=== PATIENT | female | born 1935 | race Caucasian/White ===

== ENCOUNTER 2017-03-26 10:44 | Inpatient (IN) ==
--- NOTE | 2017-03-26 11:36 | Anesthesia Evaluation PreOp ---
Date of Encounter: 03/26/17 Time of Encounter: 11:33 - Past History Planned Operation: R-rosalina colectomy Cardiac History: Other (AAA 3.1 x 2.6 cm stable on ultrasound 01/2016. 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: Denies Any Significant HX Other Medical History: Renal (Stage 3 CKD), Thyroid (Hx thyroid nodules s/p thryroidectromy), Other (Hx of bladder Ca/low grade urothelial carcinoma,) Anesthesia History: No Prior Anesthetic Complications, Past Anesthesia (Partial Hyster 1975, R-lobectomy/L-stereotactic tx of lung Ca 2000, R-thyroidectomy, tubal ligation, Lap Soraya 2013, R-Inguinal lymph node bx, B-IHR w/Mesh 2014, Bladder mass surgery 10/2015) Alcohol Use: none Drug use: none Medications and Allergies Aspirin 81 mg PO DAILY 10/29/14 [History] Cholecalciferol (Vitamin D3) [Vitamin D3] 5,000 tab PO DAILY 10/29/14 [History] Cyanocobalamin (Vitamin B-12) [Vitamin B12] 2,500 mcg PO DAILY 10/29/14 [History ] TraMADol [Ultram] 50 mg PO Q6HR PRN 11/05/14 [History] Darbepoetin [Aranesp] 200 mcg SQ Q2W 01/10/15 [History] Multivitamin [Multi-Day Vitamins] 1 each PO DAILY 03/11/15 [History] Folic Acid 0.8 mg PO DAILY 01/20/17 [History] Umeclidinium Brm/Vilanterol Tr [Anoro Ellipta 62.5-25 Mcg INH] 1 puff IH DAILY 03/26/17 [History] 3 Allergy/AdvReac Type Severity Reaction Status Date / Time Penicillins [PCN] Allergy Hives Verified 03/26/17 11:17 Sulfa (Sulfonamide Allergy Itching Verified 03/26/17 11:17 Antibiotics) terbinafine Allergy Itching Verified 03/26/17 11:17 venom-honey bee Allergy Swelling Verified 03/26/17 11:17 [bee venom (honey bee)] morphine AdvReac Migraine Verified 03/26/17 11:17 metal Allergy Itching Uncoded 03/26/17 11:17 - Meds/Allergy Pre-op Review Medications Reviewed: Yes Allergies Reviewed: Yes Beta Blockers on Current Med List: No Anesthesia Results - Labs Laboratory Tests 03/03/17 03/25/17 11:49 12:16 WBC 5.3 Hgb 10.5 L Hct 33.1 L Plt Count 377 Sodium 140 Potassium 4.3 Chloride 102 Carbon Dioxide 30 H BUN 31 H Creatinine 1.76 H Est GFR (Non-Af Amer) 28 L - Imaging EKG: image reviewed (78 bpm SR) Chest x-ray: pending Anesthesia Exam O2 Sat Height 1.73 m Height 1.73 m Weight 53.524 kg Weight 53.524 kg O2 Sat by Pulse Oximetry 98 Vital Signs Temp Pulse Resp BP Pulse Ox 98.3 F 84 18 159/81 98 03/26/17 11:28 03/26/17 11:28 03/26/17 11:28 03/26/17 11:28 03/26/17 11:28 Height: 5'8" Weight: 118# bmi = 18 NPO (# of Hours): mNOC - HEENT Pupil (Motor): Pupils equal, EOMI Mallampati: II Teeth: Edentulous Oral Opening: Greater than 3 - LICENSED PSYCHOLOGIST DIRECTOR LOC: Oriented LICENSED PSYCHOLOGIST DIRECTOR Motor: Normal RUE, Normal LUE, Normal RLE, Normal LLE, Normal Face LICENSED PSYCHOLOGIST DIRECTOR Sensory: Normal: RUE, LUE, RLE, LLE, Face - Cardiac Rhythm: Regular Murmur: None - Pulmonary Breath Sounds: bilateral Clear Respiratory Effort: Symmetrical Anesthesia Assess/Plan ASA Score: 3 (Lung Ca x 2 primaries, CKD, COPD, Bladder CA) Modified [place] Scale for Level of Consciousness: Cooperative, oriented, and tranquil Anesthetic Plan: General Monitoring Plan: Standard Monitors Recovery Plan: PACU Anes Supervising Prov Stmt: Pt seen/evalutaed, R&B Discussed, questions answered and consent obtained. Alejandra Wayne MD
[2017-03-26] MEDS ORDERED: Lidocaine -MPF 1% 2 ML VIAL ID ONE (11:52)
[2017-03-26] MEDS ORDERED: Albuterol 2.5 MG/3 ML NEBULIZER IH ONE (12:00)
[2017-03-26] MEDS ORDERED: Albuterol 2.5 MG/3 ML NEBULIZER ONE (12:01)
[2017-03-26] MEDS: Ringers Solution, Lactated 1,000 ML IVC SCH (12:25)
[2017-03-26] MEDS ORDERED: *HR* FentaNYL (PF) 100 MCG/2 ML VIAL ONE (12:51)
[2017-03-26] MEDS ORDERED: *HR* Rocuronium Bromide 50 MG/5 ML VIAL ONE (12:51)
[2017-03-26] MEDS ORDERED: Lidocaine -MPF 2% 2 ML VIAL ONE (12:51)
[2017-03-26] MEDS ORDERED: *HR* Propofol 200 MG/20 ML VIAL IVP ONE (12:51)
--- NOTE | 2017-03-26 13:17 | History & Physical Report ---
Date of Encounter: 03/26/17 Time of Encounter: 13:16 24 Hour HP Update - Instructions Instructions: If the History and Physical is less than 30 days old and was completed prior to A.M. admission and or procedure and has NOT been updated on calendar day of procedure please complete this update prior to performing procedure. - Update Patient reports changes in Medical Condition: No Changes in examination, assessment, or condition: No Changes in Medication: No Preop tests/diagnostics Reviewed: Yes Surgery Remains Indicated: Yes Consent for Planned Operative Procedure(s) Verified: Yes - Pre-Operative Checklist Preoperative Checklist Indicated: Yes Prophylactic Antibiotic Ordered: Yes Home Medications Include Beta Carlotta: No Beta Carlotta Taken Today (Day of Surgery): No Beta Carlotta Taken Yesterday (Day Prior to Surgery): No Is VTE Prophylaxis Indicated?: Yes - Attending Attestation patient seen and examined. no changes in health since last evaluation; okay to proceed with surgery
[2017-03-26] MEDS ORDERED: Naloxone 0.4 MG/ML INJ IVP PRN (14:07)
[2017-03-26] MEDS ORDERED: MetroNIDAZOLE 500 MG/100 ML 500 MG/100 ML BAG IVPB ONE ×2 (14:08→14:10)
[2017-03-26] MEDS ORDERED: Levofloxacin 500 MG/100 ML 500 MG/100 ML BAG IVPB ONE (14:11)
[2017-03-26] MEDS ORDERED: Acetaminophen 325 MG TABLET PO PRN (14:12)
[2017-03-26] MEDS ORDERED: D5% in 0.45% NACL 1,000 ML IVC SCH (14:15)
[2017-03-26] MEDS ORDERED: EPHEDrine 50 MG/ML VIAL ONE (14:45)
[2017-03-26] MEDS ORDERED: Albuterol 2.5 MG/3 ML NEBULIZER IH PRN (16:03)
[2017-03-26] MEDS ORDERED: Ondansetron 4 MG/2 ML VIAL IVP PRN (16:03)
[2017-03-26] MEDS ORDERED: *HR* HYDROmorphone 2 MG/ML SYRINGE ONE (16:34)
[2017-03-26] MEDS ORDERED: Neostigmine Methylsulfate 3 MG/3 ML SYRINGE ONE (16:44)
[2017-03-26] MEDS: *HR* HYDROmorphone (PF) 1 MG/ML SYRINGE IVP PRN ×4 (18:20→18:50)
[2017-03-26] MEDS ORDERED: Acetaminophen IV 1,000 MG/100 ML INFUS..BTL ONE (18:49)
--- NOTE | 2017-03-26 18:58 | Anesthesia Evaluation Post Op ---
Date of Encounter: 03/26/17 Time of Encounter: 18:57 - Vital Signs Vital Signs: Vital Signs/O2 Sat/Glucose, Most Current Temp Pulse Resp BP Pulse Ox 03/26/17 18:48 80 16 143/58 98 03/26/17 18:38 79 16 152/61 98 03/26/17 18:28 97.9 F 86 18 154/61 99 03/26/17 18:18 96 20 163/68 96 03/26/17 18:08 91 18 161/67 100 03/26/17 17:58 98.9 F 87 16 151/67 100 - Lungs Lungs: Clear Ascult./Percussion - Airway Airway: Non-obstructed - Cardiovascular Regular Rate - Mental Status Mental Status: Alert & Oriented, Answers Appropriately - Pain Pain Scale: 2 Pain Scale used: Georges-Cole (Faces) - Nausea Vomiting Nausea Vomiting: Not Present - Hydration Hydration: Tolerates oral liquids - Discharge PostOp Status: Transfer Patient to floor Anes Supervising Prov Stmt: Pt seen/evaluated, VSS and pt has met criteria for discharge to floor. - MD Rosana
--- NOTE | 2017-03-26 19:13 | Operative Note ---
Date of procedure: 03/26/17 Pre-op diagnosis: unresectable colonic polyp Post-op diagnosis: same Procedure: laparoscopic right hemicolectomy Complications: none Anesthesia: GETA Local Anesthetics: 0.5% Sensorcaine HCL SubQ (cc) Surgeon: Josh Copeland Was there an plastic surgery assistant present: Yes Range Scientist: Madhuri Do Estimated blood loss (cc): 10 Specimen: right colon Condition: stable Disposition: PACU Procedure in Detail: The patient was brought into the operating room suite. The patient was placed in the supine position. Mechanical DVT prophylaxis was initiated. The patient underwent smooth induction of general endotracheal anesthesia. The patient was prepped and draped in the usual fashion. Preoperative antibiotics were given. A timeout was held identifying the correct patient, pathology, and procedure. Everyone was in agreement and we began a procedure. Incision to Dissection I started by creating a 10mm incision supraumbilically and, via open johan technique, did enter into the abdomen and inserted the port for the laparoscopic camera. I then created 3 five millimeter incision, one suprapubically, one in left abdomen one handbreadth from the umbilicus, and one on the right one handbreadth from the umbilicus. I started my dissection laterally. I retracted the cecum medially and, using electrocautery began to dissect along the white line of toldt. I then continued along the hepatic flexure. She had adhesions from a prior cholecystectomy and these were also taken down to allow mobilization of the colon. I then mobilized the transverse colon by incising the gastrocolic ligament. I was able to enter into the lesser sac to ensure an adequate dissection/mobilization. I was able At this point, I was able to move the right colon across the midline and the transverse colon down the umbilicus. At this point i deemed that, despite not mobilizing medially, my mobilization was more than adequate. Exteriorization to Anastamosis I then extended the incision around the umbilicus, inserted the frank wound protector and exteriorized the bowel. I had to insert the hand port and reinsufflate because the appendix was adhere to the pelvis by an adhesive band. This was lysed and I ended the insufflation and re-exteriorized the bowel. I stapled the transverse colon medial to the middle colic artery distally and across the terminal ileum proximally using the 75mm endo JUSTIN stapler. I used the impact ligasure across the mesentery. Of note, I did take the Right branch of the middle colic artery. I then passed off the specimen. I then used the eddy scissors to cut across the staple line at the corner and, using the same caliber stapler as before, I inserted one arm into the proximal and distal end and fired the stapler, creating my side to side anastasmosis. I did this twice. I then used a TA stapler to staple the open end and used a 3-0 vicryl suture to serve as my crotch stitch. Closure I then used 1-0 PDS suture in a figure of 8 fashion to close the fascia. I used a 3-0 vicryl to reapproximate the deep dermal layer. I then closed the midline incision with a 4-0 monocyryl in a subcuticular fashion. I closed the remaining 5mm incisions with 4-0 monocryl in an interrupted fashion. All incisions were sealed with dermabond. The patient tolerated the procedure well and was escorted to PACU in stable condition.
--- NOTE | 2017-03-26 19:20 | Event Note ---
Date of Encounter: 03/26/17 Time of Encounter: 19:15 Patient did well intraoperatively. Post operatively she is stable and in no acute distress. Plan for over the weekend 03/26 - CLD; saline lock IV when PO intake is adequate - tramadol, flexeril, tylenol; can consider toradol if extra pain control needed. Wish to limit narcotics if possible. If she needs it then it is okay. - Activity as tolerated; encourage ambulation as tolerated - home meds restarted 03/27 - advance as tolerated to soft diet - cont pain regimen - activity as tolerated 03/28 okay for discharge if she is progressing as expected Should she not follow this expected hospital course, simply provide acceptable level of care.
[2017-03-26] MEDS: Gabapentin 300 MG CAPSULE PO SCH ×2 (21:37)
[2017-03-26] MEDS: traMADol 50 MG TABLET PO PRN (22:02)
[2017-03-27] MEDS: traMADol 50 MG TABLET PO PRN ×3 (04:03→18:32)
[2017-03-27] MEDS: Ringers Solution, Lactated 1,000 ML IVC SCH (04:04)
[2017-03-27 05:56] LABS: Basophils % 0.3 %; Hematocrit 28.1 % (35.3-44.9); Hemoglobin 8.7 g/dL (11.5-15.4); Immature Granulocytes % 0.4 % (0-4); Lymphocytes # 0.9 K/mcL (0.6-4.6); Lymphocytes % 8.9 %; Mean Corpuscular Hemoglobin 33.5 pg (28.0-33.3); Mean Corpuscular Volume 108.1 fL (83.0-100.0); Mean Platelet Volume 10.1 fL (9.4-12.4); Monocytes # 0.6 K/mcL (0.0-1.3); Monocytes % 5.5 %; Nucleated Red Blood Cells 0.2 /100 WBC (0); Platelet Count 287 K/mcL (140-400); Red Cell Distribution Width 17.9 % (11.5-14.5); Segmented Neutrophils % 84.9 %
[2017-03-27 06:27] LABS: Calcium 8.4 mg/dL (8.6-10.3); Magnesium 1.8 mg/dL (1.6-2.6); Phosphorous 5.1 mg/dL (2.7-4.5); Potassium 4.9 mEq/L (3.5-5.1)
[2017-03-27] MEDS ORDERED: Naloxone 0.4 MG/ML INJ IVP PRN (07:36)
[2017-03-27] MEDS ORDERED: Ondansetron 4 MG/2 ML VIAL IVP PRN (07:36)
[2017-03-27] MEDS ORDERED: Acetaminophen 325 MG TABLET PO PRN (07:36)
[2017-03-27] MEDS ORDERED: Albuterol 2.5 MG/3 ML NEBULIZER IH PRN (07:36)
--- NOTE | 2017-03-27 09:24 | General Surgery Progress Note ---
<Yara Arnold - Last Filed: 03/27/17 13:29> Date of Encounter: 03/27/17 Time of Encounter: 06:45 - Assessment and Plan (1) Colonic polyp Current Visit: Yes Status: Acute s/p day 1 laparoscopic right hemicolectomy Patient is stable, afebrile. WBC WNL She has not had a bowel movement or passed gas. Patient reports that she still has abdominal pain. Added dilaudid 0.5mg q1Hr PRN to pain control management. She has ambulated to the bedside commode. Continue ambulation as tolerated. Will continue to to advance diet only as tolerated. Qualifiers: Qualified Code(s): K63.5 - Polyp of colon Subjective Patient reports: no new complaints, still having pain, voiding w/o difficulty, no flatus, no bowel movement, afebrile Narrative: The patient reports that she abdominal pain still. According to her nurse she had a couple bites of jello last night and then became nauseas. She has not had a bowel movement or passed gas. Objective Vital Signs - Last 8 Hours Temp Pulse Resp BP Pulse Ox 03/27/17 06:50 98.4 F 77 16 149/58 99 03/27/17 04:17 98.1 F 79 15 152/69 100 Intake and Output 03/26/17 03/27/17 03/27/17 23:59 07:59 15:59 Intake Total 100 / 100 1000 / 1000 Output Total 460 / 460 100 / 100 Balance -360 / -360 900 / 900 Intake: IV Fluids 100 / 100 1000 / 1000 Ofirmev 1,000 mg/100 ml 1,000 100 / 100 mg In 100 ml As .ROUTE .STK-MED ONE Rx#:[id number] Lactated Ringers 1,000 ML @ 75 1000 / 1000 mls/hr IVC .[id number] [facility] Rx#: [id number] Oral 0 / 0 Output: Urine 450 / 450 100 / 100 Estimated Blood Loss Other: Weight 53.297 kg Patient Weight 03/27/17 23:59 Weight 53.297 kg - General physical appearance well developed, well nourished, no distress - ENT normal pinna, normal nares - Respiratory normal expansion, normal respiratory effort, clear to auscultation - Cardiovascular Cardiovascular exam: Present: RRR - Abdomen Abdomen: Present: bowel sounds present, soft, distended, tender. Absent: guarding - Incision Incision: Present: clean and dry. Absent: draining, red - Neurologic CN 2-12 grossly intact, normal coordination - Psychiatric oriented to time, oriented to person, oriented to place - Labs 03/27/17 05:33 03/27/17 05:33 Diabetes panel 03/27/17 Range/Units 05:33 Sodium 140 (136-145) mEq/L Potassium 4.9 (3.5-5.1) mEq/L Chloride 108 H (98-107) mEq/L Carbon Dioxide 27 (23-29) mEq/L BUN 35 H (8-23) mg/dL Creatinine 1.51 H (0.60-1.20) mg/dL Glucose 126 H (70-105) mg/dL Calcium 8.4 L (8.6-10.3) mg/dL Calcium panel 03/27/17 Range/Units 05:33 Calcium 8.4 L (8.6-10.3) mg/dL Phosphorus 5.1 H (2.7-4.5) mg/dL Pituitary panel 03/27/17 Range/Units 05:33 Sodium 140 (136-145) mEq/L Potassium 4.9 (3.5-5.1) mEq/L Chloride 108 H (98-107) mEq/L Carbon Dioxide 27 (23-29) mEq/L BUN 35 H (8-23) mg/dL Creatinine 1.51 H (0.60-1.20) mg/dL Glucose 126 H (70-105) mg/dL Calcium 8.4 L (8.6-10.3) mg/dL Adrenal panel 03/27/17 Range/Units 05:33 Sodium 140 (136-145) mEq/L Potassium 4.9 (3.5-5.1) mEq/L Chloride 108 H (98-107) mEq/L Carbon Dioxide 27 (23-29) mEq/L BUN 35 H (8-23) mg/dL Creatinine 1.51 H (0.60-1.20) mg/dL Glucose 126 H (70-105) mg/dL Calcium 8.4 L (8.6-10.3) mg/dL - VTE Documentation of Mechanical Device: Graduated compression elastic hosiery Consult Discharge Plan - Plan Referrals: Lester White MD [Primary Care Provider] - <Deshaun Lima - Last Filed: 03/28/17 10:06> Date of Encounter: 03/27/17 Objective Vital Signs - Last 8 Hours Temp Pulse Resp BP Pulse Ox 03/28/17 07:46 98.1 F 101 14 185/77 98 03/28/17 04:40 98.1 F 82 14 163/78 97 Intake and Output 03/27/17 03/28/17 03/28/17 23:59 07:59 15:59 Intake Total 1113 / 1113 640 / 640 Output Total 900 / 900 800 / 800 Balance 213 / 213 -160 / -160 Intake: IV Fluids 873 / 873 D5% And 0.45% Nacl 1000 Ml Bag 873 / 873 1,000 ML @ 83 mls/hr IVC . Q12H3M [facility] Rx#:[id number] Oral 240 / 240 640 / 640 Output: Urine 900 / 900 800 / 800 Other: Meal Dinner Weight 52.89 kg Patient Weight 03/28/17 23:59 Weight 52.89 kg - Labs 03/27/17 05:33 03/27/17 05:33 - Attending Attestation I examined this patient and my medical decision-making was reviewed with the Resident Physician. I agree with the documented findings, disposition and treatment plan as described except to the extent set forth below. The patient is seen and evaluated on morning rounds with rest. She does not have any bowel sounds. The abdomen is slightly distended. Her pain control is fair. We will slowly move up on her diet. Excellent condition for postoperative day 1 Deshaun Lima MD FACS
[2017-03-27] MEDS: Gabapentin 300 MG CAPSULE PO SCH ×3 (09:54→20:09)
[2017-03-27] MEDS: Aspirin 81 MG TAB.CHEW PO SCH (10:00)
[2017-03-27] MEDS: D5% in 0.45% NACL 1,000 ML IVC SCH ×2 (10:02→20:25)
[2017-03-27] MEDS: Folic Acid 1 MG TABLET PO SCH (10:06)
[2017-03-27] MEDS: Multivit/Ca/Min/Fe/FA 1 TAB TABLET PO SCH (10:06)
[2017-03-27] MEDS: *HR* Morphine 2 MG/ML SYRINGE IVP SCH ×4 (10:06→20:09)
[2017-03-27] MEDS: Cholecalciferol (D-3) 1,000 UNIT TABLET PO SCH (10:07)
[2017-03-27] MEDS: Cyanocobalamin (B-12) 1,000 MCG TABLET PO SCH (10:07)
[2017-03-27] MEDS ORDERED: *HR* Enoxaparin 40 MG/0.4 ML SYRINGE SQ SCH ×2 (14:11)
[2017-03-27] MEDS: *HR* HYDROmorphone (PF) 1 MG/ML SYRINGE IVP PRN (20:10)
[2017-03-28] MEDS: *HR* Morphine 2 MG/ML SYRINGE IVP SCH ×7 (01:35→23:45)
[2017-03-28] MEDS: traMADol 50 MG TABLET PO PRN ×2 (04:21→10:35)
[2017-03-28] MEDS: *HR* Enoxaparin 30 MG/0.3 ML SYRINGE SQ SCH (06:36)
[2017-03-28] MEDS ORDERED: 0.9 % Sodium Chloride 1,000 ML IV SCH (09:00)
[2017-03-28] MEDS ORDERED: 0.9 % Sodium Chloride 1,000 ML ONE (10:27)
[2017-03-28] MEDS: Gabapentin 300 MG CAPSULE PO SCH ×3 (10:35→21:12)
[2017-03-28] MEDS: Folic Acid 1 MG TABLET PO SCH (10:36)
[2017-03-28] MEDS: Cyanocobalamin (B-12) 1,000 MCG TABLET PO SCH (10:36)
[2017-03-28] MEDS: Multivit/Ca/Min/Fe/FA 1 TAB TABLET PO SCH (10:36)
[2017-03-28] MEDS: Cholecalciferol (D-3) 1,000 UNIT TABLET PO SCH (10:36)
[2017-03-28] MEDS: Aspirin 81 MG TAB.CHEW PO SCH (10:36)
--- NOTE | 2017-03-28 13:31 | General Surgery Progress Note ---
<Yara Arnold - Last Filed: 03/28/17 13:27> Date of Encounter: 03/28/17 Time of Encounter: 05:45 - Assessment and Plan (1) Colonic polyp Current Visit: Yes Status: Acute s/p day 2 laparoscopic right hemicolectomy Patient is stable, afebrile. WBC WNL She has not had a bowel movement or passed gas yet. Patient reports that she still has abdominal pain. She ambulates to the bathroom bowel sounds present, tender abdomen, no guarding continue pain management regimen Continue ambulation as tolerated. advance diet to soft food Qualifiers: Qualified Code(s): K63.5 - Polyp of colon (2) Hypertension Current Visit: Yes Status: Acute BP 185/77 she is not on home BP meds. May be due to IVF. stop IVF hydralazine once continue to monitor Qualifiers: Hypertension type: other secondary hypertension Qualified Code(s): I15.8 - Other secondary hypertension Subjective Patient reports: pain is less, tolerating liquids well, no flatus, no bowel movement Narrative: Patient complains of a sore throat and would lozenges. Objective Vital Signs - Last 8 Hours Temp Pulse Resp BP Pulse Ox 03/28/17 11:16 98.8 F 92 16 179/78 94 03/28/17 07:46 98.1 F 101 14 185/77 98 Intake and Output 03/27/17 03/28/17 03/28/17 23:59 07:59 15:59 Intake Total 1113 / 1113 640 / 640 500 / 500 Output Total 900 / 900 800 / 800 0 / 0 Balance 213 / 213 -160 / -160 500 / 500 Intake: IV Fluids 873 / 873 D5% And 0.45% Nacl 1000 Ml Bag 873 / 873 1,000 ML @ 83 mls/hr IVC . Q12H3M [facility] Rx#:[id number] Oral 240 / 240 640 / 640 500 / 500 Output: Urine 900 / 900 800 / 800 0 / 0 Other: Meal Dinner Weight 52.89 kg Patient Weight 03/28/17 23:59 Weight 52.89 kg - General physical appearance well developed, well nourished, no distress - Eyes normal ocular movement - ENT normal nares - Respiratory normal expansion, normal respiratory effort, clear to auscultation - Cardiovascular Cardiovascular exam: Present: RRR - Abdomen Abdomen: Present: bowel sounds present, soft, tender - Incision Incision: Present: clean and dry, intact - Integumentary no abnormal pigmentation - Neurologic normal coordination - Psychiatric oriented to time, oriented to person, oriented to place - Labs 03/27/17 05:33 03/27/17 05:33 - VTE Documentation of Mechanical Device: Intermittent pneumatic compression device Consult Discharge Plan - Plan Referrals: Lester White MD [Primary Care Provider] - <Deshaun Lima - Last Filed: 03/28/17 15:01> Date of Encounter: 03/28/17 Objective Vital Signs - Last 8 Hours Temp Pulse Resp BP Pulse Ox 03/28/17 11:16 98.8 F 92 16 179/78 94 03/28/17 07:46 98.1 F 101 14 185/77 98 Intake and Output 03/27/17 03/28/17 03/28/17 23:59 07:59 15:59 Intake Total 1113 / 1113 640 / 640 500 / 500 Output Total 900 / 900 800 / 800 0 / 0 Balance 213 / 213 -160 / -160 500 / 500 Intake: IV Fluids 873 / 873 D5% And 0.45% Nacl 1000 Ml Bag 873 / 873 1,000 ML @ 83 mls/hr IVC . Q12H3M [facility] Rx#:[id number] Oral 240 / 240 640 / 640 500 / 500 Output: Urine 900 / 900 800 / 800 0 / 0 Other: Meal Dinner Weight 52.89 kg Patient Weight 03/28/17 23:59 Weight 52.89 kg - Labs 03/27/17 05:33 03/27/17 05:33 - Attending Attestation I examined this patient and my medical decision-making was reviewed with the Resident Physician. I agree with the documented findings, disposition and treatment plan as described except to the extent set forth below. The patient is seen and evaluated with resident morning rounds. She has excellent pain control. She is not tolerating her diet very well like to try to advance to full liquid diet think this is reasonable. She has good bowel sounds. Mild distention. She is doing well after laparoscopic right hemicolectomy. Likely discharge Deshaun Lima MD FACS
[2017-03-29] MEDS: *HR* Morphine 2 MG/ML SYRINGE IVP SCH ×3 (05:54→15:06)
[2017-03-29] MEDS: *HR* Enoxaparin 30 MG/0.3 ML SYRINGE SQ SCH (06:45)
--- NOTE | 2017-03-29 09:26 | Electrocardiograph Report ---
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
[2017-03-29] MEDS: Folic Acid 1 MG TABLET PO SCH (09:32)
[2017-03-29] MEDS: Gabapentin 300 MG CAPSULE PO SCH ×3 (09:32→21:46)
[2017-03-29] MEDS: traMADol 50 MG TABLET PO PRN ×2 (09:32→15:09)
[2017-03-29] MEDS: Multivit/Ca/Min/Fe/FA 1 TAB TABLET PO SCH (09:33)
[2017-03-29] MEDS: Cholecalciferol (D-3) 1,000 UNIT TABLET PO SCH (09:33)
[2017-03-29] MEDS: Cyanocobalamin (B-12) 1,000 MCG TABLET PO SCH (09:33)
[2017-03-29] MEDS: Aspirin 81 MG TAB.CHEW PO SCH (09:33)
--- NOTE | 2017-03-29 09:39 | General Surgery Progress Note ---
Date of Encounter: 03/29/17 Time of Encounter: 09:36 - Assessment and Plan (1) S/P right hemicolectomy Current Visit: Yes Status: Acute 81F POD#3 s/p lap r rosalina; pain controlled; tolerating diet; ambulating; distended on exam; while in all other regards she looks good, I am slightly concerned at the amount of distension that she is having; encouraged ambulation today; if she has flatus or bowel movement OR if she continues to feel and look better by this evening, then I'd be okay with her going home today; at present the patient is hesitant about going home - diet as tolerated - activity as tolerated; ambulate multiple times today - cont to encourage PO intake, torsten liquids - cont with non narcotics; d/c morphine - will reassess in PM Subjective Patient reports: no new complaints, feels better, still having pain, pain is less, tolerating liquids well, no flatus, no bowel movement, afebrile Objective Vital Signs - Last 8 Hours Temp Pulse Resp BP Pulse Ox 03/29/17 04:26 98.1 F 84 16 162/73 96 Intake and Output 03/28/17 03/29/17 03/29/17 23:59 07:59 15:59 Intake Total 1120 / 1120 120 / 120 240 / 240 Output Total 200 / 200 200 / 200 Balance 920 / 920 -80 / -80 240 / 240 Intake: IV Fluids 1000 / 1000 Oral 120 / 120 120 / 120 240 / 240 Output: Urine 200 / 200 200 / 200 Other: Meal Dinner Breakfast Percent of Meal Consumed 5% 85% # Voids 3 Weight 53.2 kg Patient Weight 03/29/17 23:59 Weight 53.2 kg - General physical appearance well developed, no distress - ENT normocephalic - Respiratory normal expansion, normal respiratory effort - Cardiovascular Cardiovascular exam: Present: RRR - Abdomen Abdomen: Present: soft, tympanic, distended, tender (along midline incision; improved) - Incision Incision: Present: clean and dry, intact - Neurologic CN 2-12 grossly intact - Psychiatric oriented to time, oriented to person, oriented to place - Labs 03/27/17 05:33 03/27/17 05:33 - VTE Documentation of Mechanical Device: Intermittent pneumatic compression device Consult Discharge Plan - Plan Referrals: Lester White MD [Primary Care Provider] -
[2017-03-30] MEDS: traMADol 50 MG TABLET PO PRN ×2 (03:50→09:42)
--- NOTE | 2017-03-30 08:21 | General Surgery Progress Note ---
Date of Encounter: 03/30/17 Time of Encounter: 08:18 - Assessment and Plan (1) S/P right hemicolectomy Current Visit: Yes Status: Acute 81F POD#4 s/p lap r rosalina; pain controlled; tolerating diet; ambulating; distended on exam; (+)flatus; okay for discharge today, but patient is anxious about leaving - cont diet as tolerated - activity/ambulate - cont pain control - will reassess for discharge in the afternoon Subjective Patient reports: no new complaints, feels better, pain is less, tolerating liquids well, tolerating a regular diet, no flatus, no bowel movement, afebrile Objective Vital Signs - Last 8 Hours Temp Pulse Resp BP Pulse Ox 03/30/17 07:34 98.1 F 86 18 156/71 95 03/30/17 04:11 98.4 F 81 14 127/72 94 03/30/17 01:31 97.2 F L 78 14 130/81 97 Intake and Output 03/29/17 03/30/17 03/30/17 23:59 07:59 15:59 Intake Total 0 / 0 370 / 370 Output Total 700 / 700 450 / 450 Balance -700 / -700 -80 / -80 Intake: Oral 0 / 0 370 / 370 Output: Urine 700 / 700 450 / 450 Other: Weight 52.98 kg Patient Weight 03/30/17 23:59 Weight 52.98 kg - General physical appearance well developed, well nourished - ENT normocephalic - Neck Neck exam: no lymphadectomy - Respiratory normal expansion, normal respiratory effort - Cardiovascular Cardiovascular exam: Present: RRR - Abdomen Abdomen: Present: soft, tympanic, distended (non rigid; same distension as compared to yesterday), tender (appropriatley tender) - Incision Incision: Present: clean and dry, intact - Neurologic CN 2-12 grossly intact - Psychiatric oriented to time, oriented to person, oriented to place - Labs 03/27/17 05:33 03/27/17 05:33 - VTE Documentation of Mechanical Device: Intermittent pneumatic compression device Consult Discharge Plan - Plan Referrals: Lester White MD [Primary Care Provider] -
[2017-03-30] MEDS: Multivit/Ca/Min/Fe/FA 1 TAB TABLET PO SCH (08:30)
[2017-03-30] MEDS: Folic Acid 1 MG TABLET PO SCH (08:30)
[2017-03-30] MEDS: Cyanocobalamin (B-12) 1,000 MCG TABLET PO SCH (08:30)
[2017-03-30] MEDS: Gabapentin 300 MG CAPSULE PO SCH ×3 (08:30→19:31)
[2017-03-30] MEDS: *HR* Enoxaparin 30 MG/0.3 ML SYRINGE SQ SCH (08:33)
[2017-03-30] MEDS: Aspirin 81 MG TAB.CHEW PO SCH (08:33)
[2017-03-30] MEDS: Cholecalciferol (D-3) 1,000 UNIT TABLET PO SCH (08:33)
[2017-03-30] MEDS ORDERED: D5% in 0.45% NACL w KCl 20 MEQ/1,000 ML MLS IVC SCH (16:30)
[2017-03-30] MEDS ORDERED: Acetaminophen IV 1,000 MG/100 ML INFUS..BTL IVPB ONE (16:33)
[2017-03-30 16:47] LABS: Basophils % 0.5 %; Eosinophils # 0.1 K/mcL (0.0-0.6); Eosinophils % 2.2 %; Hematocrit 25.5 % (35.3-44.9); Hemoglobin 8.4 g/dL (11.5-15.4); Immature Granulocytes % 0.2 % (0-4); Lymphocytes % 16.4 %; Mean Corpuscular HGB Conc 32.9 g/dL (31.6-35.5); Mean Corpuscular Hemoglobin 33.1 pg (28.0-33.3); Mean Platelet Volume 10.3 fL (9.4-12.4); Monocytes # 0.6 K/mcL (0.0-1.3); Monocytes % 9.9 %; Neutrophils # 4.1 K/mcL (1.6-8.9); Platelet Count 349 K/mcL (140-400); Red Blood Count 2.54 M/mcL (3.82-4.97); Segmented Neutrophils % 70.8 %
[2017-03-30 16:48] LABS: Mean Corpuscular Volume 100.4 fL (83.0-100.0)
[2017-03-30 17:09] LABS: Albumin 3.5 g/dL (3.5-5.7); Albumin/Globulin Ratio 1.7 (1.1-2.2); Bilirubin,Total 0.5 mg/dL (0.3-1.0); Globulin 2.1 g/dL (2.4-3.5); Magnesium 1.7 mg/dL (1.6-2.6); Phosphorous 4.4 mg/dL (2.7-4.5); Total Protein 5.6 g/dL (6.4-8.9)
[2017-03-30] MEDS: D5% in 0.45% NACL 1,000 ML IVC SCH (19:29)
[2017-03-30] MEDS ORDERED: Ringers Solution, Lactated 1,000 ML IVC ONE (21:18)
[2017-03-31] MEDS: 0.9 % Sodium Chloride 1,000 ML IVC SCH ×3 (01:15→23:56)
[2017-03-31] MEDS: *HR* Enoxaparin 30 MG/0.3 ML SYRINGE SQ SCH (06:30)
[2017-03-31] MEDS: *HR* HYDROmorphone (PF) 1 MG/ML SYRINGE IVP PRN ×3 (06:41→20:08)
[2017-03-31 06:57] LABS: Calcium 9.7 mg/dL (8.6-10.3); Magnesium 2.4 mg/dL (1.6-2.6); Phosphorous 4.2 mg/dL (2.7-4.5); Potassium 3.9 mEq/L (3.5-5.1)
[2017-03-31] MEDS: Multivit/Ca/Min/Fe/FA 1 TAB TABLET PO SCH (09:52)
[2017-03-31] MEDS: Folic Acid 1 MG TABLET PO SCH (09:52)
[2017-03-31] MEDS: Cholecalciferol (D-3) 1,000 UNIT TABLET PO SCH (09:52)
[2017-03-31] MEDS: Aspirin 81 MG TAB.CHEW PO SCH (09:52)
[2017-03-31] MEDS: Gabapentin 300 MG CAPSULE PO SCH ×3 (09:52→19:41)
[2017-03-31] MEDS: Cyanocobalamin (B-12) 1,000 MCG TABLET PO SCH (09:52)
[2017-03-31] MEDS ORDERED: 0.9 % Sodium Chloride 1,000 ML IVC ONE (12:04)
--- NOTE | 2017-03-31 12:10 | General Surgery Progress Note ---
Date of Encounter: 03/31/17 Time of Encounter: 12:08 - Assessment and Plan (1) S/P right hemicolectomy Current Visit: Yes Status: Acute 81F POD#5 s/p lap r rosalina; now with post operatively ileus; Ng tube is in place; patient has contraction alkalosis as well keep NPO replete lytes, bolus pt; cont with NS IVF activity as tolerated NG tube to LIWS await return of bowel function; Subjective Patient reports: no new complaints, feels better, still having pain, pain is less, no flatus (feels as if it is coming), no bowel movement, afebrile Objective Vital Signs - Last 8 Hours Temp Pulse Resp BP Pulse Ox 03/31/17 10:42 97.8 F 98 12 130/70 94 03/31/17 07:12 98.1 F 93 15 154/76 95 03/31/17 04:19 98.2 F 83 16 157/80 94 Intake and Output 03/30/17 03/31/17 03/31/17 23:59 07:59 15:59 Intake Total 0 / 0 0 / 0 Output Total 1200 / 1200 800 / 800 Balance -1200 / -1200 -800 / -800 Intake: Oral 0 / 0 0 / 0 Output: Urine 300 / 300 300 / 300 Gastric Drainage 900 / 900 500 / 500 Other: Meal NPO Weight 57.062 kg Blood Glucose* 128 124 Patient Weight 03/31/17 23:59 Weight 57.062 kg - General physical appearance well developed, well nourished, no distress - Respiratory normal expansion, normal respiratory effort - Cardiovascular Cardiovascular exam: Present: RRR - Abdomen Abdomen: Present: soft, non tender, distended - Incision Incision: Present: clean and dry, intact - Neurologic CN 2-12 grossly intact - Psychiatric oriented to time, oriented to person - Labs 03/30/17 16:39 03/31/17 06:12 Diabetes panel 03/30/17 03/30/17 03/31/17 Range/Units 16:39 16:39 06:12 Sodium 128 L 128 L 132 L (136-145) mEq/L Potassium 4.0 4.0 3.9 (3.5-5.1) mEq/L Chloride 91 L 91 L 91 L (98-107) mEq/L Carbon Dioxide 32 H 32 H 36 H (23-29) mEq/L BUN 24 H 24 H 24 H (8-23) mg/dL Creatinine 1.41 H 1.44 H 1.45 H (0.60-1.20) mg/dL Glucose 154 H 156 H 119 H (70-105) mg/dL Calcium 10.0 10.0 9.7 (8.6-10.3) mg/dL AST 14 (13-39) Units/L ALT 12 (7-52) Units/L Alkaline Phosphatase 45 (34-104) Units/L Albumin 3.5 (3.5-5.7) g/dL Calcium panel 03/30/17 03/30/17 03/31/17 Range/Units 16:39 16:39 06:12 Calcium 10.0 10.0 9.7 (8.6-10.3) mg/dL Phosphorus 4.4 4.2 (2.7-4.5) mg/dL Albumin 3.5 (3.5-5.7) g/dL Pituitary panel 03/30/17 03/30/17 03/31/17 Range/Units 16:39 16:39 06:12 Sodium 128 L 128 L 132 L (136-145) mEq/L Potassium 4.0 4.0 3.9 (3.5-5.1) mEq/L Chloride 91 L 91 L 91 L (98-107) mEq/L Carbon Dioxide 32 H 32 H 36 H (23-29) mEq/L BUN 24 H 24 H 24 H (8-23) mg/dL Creatinine 1.41 H 1.44 H 1.45 H (0.60-1.20) mg/dL Glucose 154 H 156 H 119 H (70-105) mg/dL Calcium 10.0 10.0 9.7 (8.6-10.3) mg/dL Adrenal panel 03/30/17 03/30/17 03/31/17 Range/Units 16:39 16:39 06:12 Sodium 128 L 128 L 132 L (136-145) mEq/L Potassium 4.0 4.0 3.9 (3.5-5.1) mEq/L Chloride 91 L 91 L 91 L (98-107) mEq/L Carbon Dioxide 32 H 32 H 36 H (23-29) mEq/L BUN 24 H 24 H 24 H (8-23) mg/dL Creatinine 1.41 H 1.44 H 1.45 H (0.60-1.20) mg/dL Glucose 154 H 156 H 119 H (70-105) mg/dL Calcium 10.0 10.0 9.7 (8.6-10.3) mg/dL Total Bilirubin 0.5 (0.3-1.0) mg/dL AST 14 (13-39) Units/L ALT 12 (7-52) Units/L Alkaline Phosphatase 45 (34-104) Units/L Albumin 3.5 (3.5-5.7) g/dL - VTE Documentation of Mechanical Device: Intermittent pneumatic compression device Consult Discharge Plan - Plan Referrals: Christie Heredia CNP [Advanced Practice Nurse] - 04/06/17 1:20 pm Lester White MD [Primary Care Provider] -
[2017-03-31] MEDS: Pantoprazole 40 MG VIAL IVP SCH (20:04)
[2017-04-01] MEDS: 0.9 % Sodium Chloride 1,000 ML IVC SCH ×2 (01:12→13:06)
[2017-04-01] MEDS: *HR* HYDROmorphone (PF) 1 MG/ML SYRINGE IVP PRN (02:52)
[2017-04-01 05:49] LABS: Basophils % 0.6 %; Eosinophils # 0.2 K/mcL (0.0-0.6); Eosinophils % 2.5 %; Hematocrit 24.8 % (35.3-44.9); Hemoglobin 7.9 g/dL (11.5-15.4); Immature Granulocytes % 0.5 % (0-4); Lymphocytes # 0.8 K/mcL (0.6-4.6); Lymphocytes % 12.6 %; Mean Corpuscular HGB Conc 31.9 g/dL (31.6-35.5); Mean Corpuscular Hemoglobin 33.2 pg (28.0-33.3); Mean Corpuscular Volume 104.2 fL (83.0-100.0); Mean Platelet Volume 10.6 fL (9.4-12.4); Monocytes # 0.6 K/mcL (0.0-1.3); Monocytes % 9.3 %; Neutrophils # 4.9 K/mcL (1.6-8.9); Platelet Count 396 K/mcL (140-400); Red Blood Count 2.38 M/mcL (3.82-4.97); Red Cell Distribution Width 17.3 % (11.5-14.5); Segmented Neutrophils % 74.5 %
[2017-04-01 06:03] LABS: Albumin 3.2 g/dL (3.5-5.7); Albumin/Globulin Ratio 1.5 (1.1-2.2); Bilirubin,Total 0.7 mg/dL (0.3-1.0); Calcium 9.2 mg/dL (8.6-10.3); Globulin 2.1 g/dL (2.4-3.5); Potassium 3.7 mEq/L (3.5-5.1); Total Protein 5.3 g/dL (6.4-8.9)
[2017-04-01] MEDS: *HR* Enoxaparin 30 MG/0.3 ML SYRINGE SQ SCH (06:13)
[2017-04-01] MEDS ORDERED: 0.9 % Sodium Chloride 1,000 ML IVC ONE (07:38)
[2017-04-01] MEDS: Gabapentin 300 MG CAPSULE PO SCH ×3 (08:31→20:55)
[2017-04-01] MEDS: Cyanocobalamin (B-12) 1,000 MCG TABLET PO SCH (08:31)
[2017-04-01] MEDS: Multivit/Ca/Min/Fe/FA 1 TAB TABLET PO SCH (08:32)
[2017-04-01] MEDS: Folic Acid 1 MG TABLET PO SCH (08:32)
[2017-04-01] MEDS: Aspirin 81 MG TAB.CHEW PO SCH (08:32)
[2017-04-01] MEDS: Cholecalciferol (D-3) 1,000 UNIT TABLET PO SCH (08:32)
[2017-04-01] MEDS: Pantoprazole 40 MG VIAL IVP SCH (08:32)
--- NOTE | 2017-04-01 12:31 | General Surgery Progress Note ---
Date of Encounter: 04/01/17 Time of Encounter: 12:29 - Assessment and Plan (1) S/P right hemicolectomy Current Visit: Yes Status: Acute 81F POD#6 s/p lap r rosalina; now with post operatively ileus; Ng tube is in place; patient has contraction alkalosis as well keep NPO replete lytes, bolus pt; cont with NS IVF volume replacement as written activity as tolerated NG tube to LIWS await return of bowel function; Subjective Patient reports: no new complaints, feels better, still having pain, pain is less, voiding w/o difficulty, no flatus, no bowel movement, afebrile Objective Vital Signs - Last 8 Hours Temp Pulse Resp BP Pulse Ox 04/01/17 06:54 98.0 F 84 12 162/77 94 Intake and Output 03/31/17 04/01/17 04/01/17 23:59 07:59 15:59 Intake Total 0 / 0 1000 / 1000 0 / 0 Output Total 950 / 950 500 / 500 Balance -950 / -950 500 / 500 0 / 0 Intake: IV Fluids 1000 / 1000 0.9 % Sodium Chloride 1,000 ML 1000 / 1000 @ 100 mls/hr IVC .Q10H [facility] Rx#: [id number] Oral 0 / 0 0 / 0 0 / 0 Output: Urine 300 / 300 500 / 500 Gastric Drainage 650 / 650 0 / 0 Other: Meal NPO NPO Percent of Meal Consumed 0% 0% Weight 58.241 kg Blood Glucose* 114 109 Patient Weight 04/01/17 23:59 Weight 58.241 kg - General physical appearance well developed, no distress - Respiratory normal expansion, normal respiratory effort - Cardiovascular Cardiovascular exam: Present: RRR - Abdomen Abdomen: Present: soft, distended (less distended), tender (minimally tender to palpation) - Incision Incision: Present: clean and dry, intact - Neurologic CN 2-12 grossly intact - Psychiatric oriented to time, oriented to person, oriented to place - Labs 04/01/17 05:22 04/01/17 05:22 Diabetes panel 04/01/17 Range/Units 05:22 Sodium 137 (136-145) mEq/L Potassium 3.7 (3.5-5.1) mEq/L Chloride 98 (98-107) mEq/L Carbon Dioxide 32 H (23-29) mEq/L BUN 27 H (8-23) mg/dL Creatinine 1.50 H (0.60-1.20) mg/dL Glucose 103 (70-105) mg/dL Calcium 9.2 (8.6-10.3) mg/dL AST 22 (13-39) Units/L ALT 17 (7-52) Units/L Alkaline Phosphatase 43 (34-104) Units/L Albumin 3.2 L (3.5-5.7) g/dL Calcium panel 04/01/17 Range/Units 05:22 Calcium 9.2 (8.6-10.3) mg/dL Albumin 3.2 L (3.5-5.7) g/dL Pituitary panel 04/01/17 Range/Units 05:22 Sodium 137 (136-145) mEq/L Potassium 3.7 (3.5-5.1) mEq/L Chloride 98 (98-107) mEq/L Carbon Dioxide 32 H (23-29) mEq/L BUN 27 H (8-23) mg/dL Creatinine 1.50 H (0.60-1.20) mg/dL Glucose 103 (70-105) mg/dL Calcium 9.2 (8.6-10.3) mg/dL Adrenal panel 04/01/17 Range/Units 05:22 Sodium 137 (136-145) mEq/L Potassium 3.7 (3.5-5.1) mEq/L Chloride 98 (98-107) mEq/L Carbon Dioxide 32 H (23-29) mEq/L BUN 27 H (8-23) mg/dL Creatinine 1.50 H (0.60-1.20) mg/dL Glucose 103 (70-105) mg/dL Calcium 9.2 (8.6-10.3) mg/dL Total Bilirubin 0.7 (0.3-1.0) mg/dL AST 22 (13-39) Units/L ALT 17 (7-52) Units/L Alkaline Phosphatase 43 (34-104) Units/L Albumin 3.2 L (3.5-5.7) g/dL - VTE Documentation of Mechanical Device: Intermittent pneumatic compression device Consult Discharge Plan - Plan Referrals: Christie Heredia CNP [Advanced Practice Nurse] - 04/06/17 1:20 pm Lester White MD [Primary Care Provider] -
[2017-04-01] MEDS: traMADol 50 MG TABLET PO PRN ×2 (15:45→21:54)
[2017-04-02] MEDS: 0.9 % Sodium Chloride 1,000 ML IVC SCH ×2 (04:41→16:04)
[2017-04-02 05:26] LABS: Basophils % 0.4 %; Eosinophils # 0.2 K/mcL (0.0-0.6); Eosinophils % 2.8 %; Hematocrit 21.7 % (35.3-44.9); Hemoglobin 6.9 g/dL (11.5-15.4); Immature Granulocytes % 0.4 % (0-4); Lymphocytes # 1.2 K/mcL (0.6-4.6); Lymphocytes % 21.4 %; Mean Corpuscular HGB Conc 31.8 g/dL (31.6-35.5); Mean Corpuscular Hemoglobin 33.3 pg (28.0-33.3); Mean Corpuscular Volume 104.8 fL (83.0-100.0); Mean Platelet Volume 10.5 fL (9.4-12.4); Monocytes # 0.6 K/mcL (0.0-1.3); Monocytes % 11.2 %; Neutrophils # 3.4 K/mcL (1.6-8.9); Nucleated Red Blood Cells 1.3 /100 WBC (0); Platelet Count 394 K/mcL (140-400); Red Blood Count 2.07 M/mcL (3.82-4.97); Red Cell Distribution Width 17.6 % (11.5-14.5); Segmented Neutrophils % 63.8 %
[2017-04-02 05:41] LABS: Calcium 8.4 mg/dL (8.6-10.3); Potassium 3.5 mEq/L (3.5-5.1)
[2017-04-02] MEDS: *HR* Enoxaparin 30 MG/0.3 ML SYRINGE SQ SCH (06:45)
[2017-04-02] MEDS ORDERED: 0.9 % Sodium Chloride 500 ML ONE (09:50)
--- NOTE | 2017-04-02 10:16 | General Surgery Progress Note ---
<Yara Arnold - Last Filed: 04/02/17 10:28> Date of Encounter: 04/02/17 Time of Encounter: 09:30 - Assessment and Plan (1) S/P right hemicolectomy Current Visit: Yes Status: Acute 81F POD#6 s/p lap r rosalina; now with post operatively ileus; Ng tube is in place; patient has contraction alkalosis as well Hgb 6.9 decreased from yesterday 7.9 afebrile, normotensive, WBC WNL Abdominal exam demonstrated soft, tender is incision site, no bowel sounds, distended. No guarding or rebound Patient reports tenderness in incision site. No obvious active bleeding. Denied dizziness or lightheaded. Flet "woozy like she had a couple drinks" 2 units PRBCs ordered NPO replace electrolytes as needed monitor H&H continue NS IVF waiting on return of bowel function Subjective Patient reports: no new complaints, still having pain, pain is less Narrative: She still has abdominal pain but it is controlled with pain medication. She denies fever, chills, nausea, vomiting. Objective Vital Signs - Last 8 Hours Temp Pulse Resp BP Pulse Ox 04/02/17 10:05 97.3 F L 89 18 108/65 92 04/02/17 07:44 98.0 F 95 14 108/62 94 04/02/17 03:57 97.8 F 103 14 115/43 94 Intake and Output 04/01/17 04/02/17 04/02/17 23:59 07:59 15:59 Intake Total 1060 / 1060 120 / 120 0 / 0 Output Total 100 / 100 300 / 300 Balance 960 / 960 -180 / -180 0 / 0 Intake: IV Fluids 1000 / 1000 0.9 % Sodium Chloride 1,000 ML 1000 / 1000 @ 100 mls/hr IVC .Q10H [facility] Rx#: [id number] Oral 60 / 60 120 / 120 Blood Product 0 / 0 Rbcs Leuko Poor As-1 Unit 0 / 0 [id number] Output: Urine 100 / 100 300 / 300 Other: Weight 59.12 kg Patient Weight 04/02/17 23:59 Weight 59.12 kg - General physical appearance well developed, well nourished, no distress - Eyes normal ocular movement - ENT normal nares - Respiratory normal expansion, normal respiratory effort, clear to auscultation - Cardiovascular Cardiovascular exam: Present: RRR - Abdomen Abdomen: Present: soft, distended, tender. Absent: bowel sounds present, guarding, rebound Hernia: incisional - Integumentary no abnormal pigmentation - Labs 04/02/17 04:57 04/02/17 04:57 Diabetes panel 04/02/17 Range/Units 04:57 Sodium 135 L (136-145) mEq/L Potassium 3.5 (3.5-5.1) mEq/L Chloride 101 (98-107) mEq/L Carbon Dioxide 29 (23-29) mEq/L BUN 34 H (8-23) mg/dL Creatinine 1.75 H (0.60-1.20) mg/dL Glucose 150 H (70-105) mg/dL Calcium 8.4 L (8.6-10.3) mg/dL Calcium panel 04/02/17 Range/Units 04:57 Calcium 8.4 L (8.6-10.3) mg/dL Pituitary panel 04/02/17 Range/Units 04:57 Sodium 135 L (136-145) mEq/L Potassium 3.5 (3.5-5.1) mEq/L Chloride 101 (98-107) mEq/L Carbon Dioxide 29 (23-29) mEq/L BUN 34 H (8-23) mg/dL Creatinine 1.75 H (0.60-1.20) mg/dL Glucose 150 H (70-105) mg/dL Calcium 8.4 L (8.6-10.3) mg/dL Adrenal panel 04/02/17 Range/Units 04:57 Sodium 135 L (136-145) mEq/L Potassium 3.5 (3.5-5.1) mEq/L Chloride 101 (98-107) mEq/L Carbon Dioxide 29 (23-29) mEq/L BUN 34 H (8-23) mg/dL Creatinine 1.75 H (0.60-1.20) mg/dL Glucose 150 H (70-105) mg/dL Calcium 8.4 L (8.6-10.3) mg/dL - VTE Documentation of Mechanical Device: Intermittent pneumatic compression device Consult Discharge Plan - Plan Referrals: Christie Heredia CNP [Advanced Practice Nurse] - 04/06/17 1:20 pm Lester White MD [Primary Care Provider] - <Josh Copeland - Last Filed: 04/02/17 17:34> Date of Encounter: 04/02/17 - Assessment and Plan (1) S/P right hemicolectomy Current Visit: Yes Status: Acute Objective Vital Signs - Last 8 Hours Temp Pulse Resp BP Pulse Ox 04/02/17 16:11 99.1 F 90 20 153/79 95 04/02/17 15:55 99.1 F 92 20 155/65 95 04/02/17 13:30 97.8 F 93 18 138/68 93 04/02/17 10:20 98.4 F 80 18 120/67 93 04/02/17 10:05 97.3 F L 89 18 108/65 92 Intake and Output 04/02/17 04/02/17 04/02/17 07:59 15:59 23:59 Intake Total 120 / 120 1090 / 1090 Output Total 500 / 500 0 / 0 Balance -380 / -380 1090 / 1090 Intake: IV Fluids 500 / 500 0.9 % Sodium Chloride 1,000 ML 500 / 500 @ 100 mls/hr IVC .Q10H [facility] Rx#: [id number] Oral 120 / 120 240 / 240 Blood Product 350 / 350 Rbcs Leuko Poor As-1 Unit 350 / 350 [id number] Rbcs Leuko Poor As-1 Unit 0 / 0 [id number] Output: Urine 500 / 500 0 / 0 Other: Meal Lunch Weight 59.12 kg Patient Weight 04/02/17 23:59 Weight 59.12 kg - Labs 04/02/17 04:57 04/02/17 04:57 Diabetes panel 04/02/17 Range/Units 04:57 Sodium 135 L (136-145) mEq/L Potassium 3.5 (3.5-5.1) mEq/L Chloride 101 (98-107) mEq/L Carbon Dioxide 29 (23-29) mEq/L BUN 34 H (8-23) mg/dL Creatinine 1.75 H (0.60-1.20) mg/dL Glucose 150 H (70-105) mg/dL Calcium 8.4 L (8.6-10.3) mg/dL Calcium panel 04/02/17 Range/Units 04:57 Calcium 8.4 L (8.6-10.3) mg/dL Pituitary panel 04/02/17 Range/Units 04:57 Sodium 135 L (136-145) mEq/L Potassium 3.5 (3.5-5.1) mEq/L Chloride 101 (98-107) mEq/L Carbon Dioxide 29 (23-29) mEq/L BUN 34 H (8-23) mg/dL Creatinine 1.75 H (0.60-1.20) mg/dL Glucose 150 H (70-105) mg/dL Calcium 8.4 L (8.6-10.3) mg/dL Adrenal panel 04/02/17 Range/Units 04:57 Sodium 135 L (136-145) mEq/L Potassium 3.5 (3.5-5.1) mEq/L Chloride 101 (98-107) mEq/L Carbon Dioxide 29 (23-29) mEq/L BUN 34 H (8-23) mg/dL Creatinine 1.75 H (0.60-1.20) mg/dL Glucose 150 H (70-105) mg/dL Calcium 8.4 L (8.6-10.3) mg/dL - Attending Attestation I have personally seen and examined the patient. I have reviewed pertinent labs , imaging, progress notes, including this one. I agree with the above assessment and plan and wish to include the following... 81F POD#7 s/p lap r rosalina with post operative ileus; patient having flatus; also with what is likely dilutional vs acute blood loss anemia; agree with transfusion; NPO if no bowel function;
[2017-04-02] MEDS: Multivit/Ca/Min/Fe/FA 1 TAB TABLET PO SCH (10:21)
[2017-04-02] MEDS: Gabapentin 300 MG CAPSULE PO SCH ×3 (10:21→21:39)
[2017-04-02] MEDS: Cholecalciferol (D-3) 1,000 UNIT TABLET PO SCH (10:21)
[2017-04-02] MEDS: Pantoprazole 40 MG VIAL IVP SCH (10:21)
[2017-04-02] MEDS: Cyanocobalamin (B-12) 1,000 MCG TABLET PO SCH (10:21)
[2017-04-02] MEDS: Folic Acid 1 MG TABLET PO SCH (10:21)
[2017-04-02] MEDS: Aspirin 81 MG TAB.CHEW PO SCH (10:21)
--- NOTE | 2017-04-02 14:27 | Event Note ---
Date of Encounter: 04/02/17 Time of Encounter: 14:25 Notified by bedside RN pt with LUQ pain for aprox 20 mins. Pt states this discomfort has been there throughout the day, but has worsened and feels bloated /distended. On exam her abdomen is distended, absent bowel sounds, tympanic, and firm in the LUQ. she has noted ecchymosis along the incisional area and it is unclear to this [employer] SU[employer] ADMINISTR[employer] if that finding was there previously. Given her drop in Hgb today, will obtain STAT abdomen/pelvis CT without contrast given pt's stage IV CKD to r /o acute hemorrhage. VSS stable at this time. Will continue to monitor. Will consider consult nephrology as she is followed by [facility].
--- NOTE | 2017-04-02 15:14 | Nephrology Consult Note ---
Date of Encounter: 04/02/17 Time of Encounter: 15:09 Assessment and Plan (1) Chronic kidney disease Current Visit: No Status: Chronic Patient with CKD Stage 3 that is followed by Dr[address] Resendiz. Creatinine overall stable with a slight increase that is likely related to worsening anemia. Agree with transfusion and will follow. Avoid nephrotoxins and adjust medications for renal function. Will follow with you. Call with questions. Qualifiers: Chronic kidney disease stage: stage 3 (moderate) Qualified Code(s): N18.3 - Chronic kidney disease, stage 3 (moderate) (2) Anemia Current Visit: No Status: Chronic Per primary team. Transfuse as needed for acute on chronic anemia that is secondary to her surgery. Await reading of her CT. She is on Aranesp for chronic anemia. She states she received a dose on Wednesday prior to her admission. Qualifiers: Anemia type: unspecified type Qualified Code(s): D64.9 - Anemia, unspecified (3) Hypertension Current Visit: Yes Status: Acute Not on medications. Blood pressure is controlled. Qualifiers: Hypertension type: other secondary hypertension Qualified Code(s): I15.8 - Other secondary hypertension (4) S/P right hemicolectomy Current Visit: Yes Status: Acute Per surgical team. History of Present Illness - Reason for Consult Consult date: 04/02/17 Chronic Kidney Disease - Chief Complaint CKD - History of Present Illness Ms. Workman is a 81 yo woman with a history of CKD that is followed by Dr. Resendiz of [facility] presented for hemicolectomy. Her post- op course was complicated by progressive anemia. [facility] were consulted for assitance with chronic kidney disease and volume management. At the time of my evaluation the patient reports she is overall ok. She is denying acute pain. She denies chest pain or dyspnea. Past Med Surg Social Fam HX - Past Medical History Medical history: arthritis, cancer, COPD Psychiatric history: no psych history - Past Surgical History Surgical History: cholecystectomy, herniorrhaphy, hysterectomy, thyroidectomy, other - Social History Smoking Status: Former smoker Smokeless Tobacco Status: No Alcohol use: occasionally Drug use: none - Family History Father Hx Family Cancer: Yes (prostate) Medications and Allergies Aspirin 81 mg PO DAILY 10/29/14 [History] Cholecalciferol (Vitamin D3) [Vitamin D3] 5,000 tab PO DAILY 10/29/14 [History] Cyanocobalamin (Vitamin B-12) [Vitamin B12] 2,500 mcg PO DAILY 10/29/14 [History ] TraMADol [Ultram] 50 mg PO Q6HR PRN 11/05/14 [History] Darbepoetin [Aranesp] 200 mcg SQ Q2W 01/10/15 [History] Multivitamin [Multi-Day Vitamins] 1 each PO DAILY 03/11/15 [History] Folic Acid 0.8 mg PO DAILY 01/20/17 [History] Umeclidinium Brm/Vilanterol Tr [Anoro Ellipta 62.5-25 Mcg INH] 1 puff IH DAILY 03/26/17 [History] 3 Allergy/AdvReac Type Severity Reaction Status Date / Time Penicillins [PCN] Allergy Hives Verified 03/26/17 11:17 Sulfa (Sulfonamide Allergy Itching Verified 03/26/17 11:17 Antibiotics) terbinafine Allergy Itching Verified 03/26/17 11:17 venom-honey bee Allergy Swelling Verified 03/26/17 11:17 [bee venom (honey bee)] morphine AdvReac Migraine Verified 03/26/17 11:17 metal Allergy Itching Uncoded 03/26/17 11:17 Review of Systems All Systems: reviewed and no additional remarkable complaints except as stated ( as documented in the HPI.) Exam - Vital Signs Vital signs: Initial Vital Signs Temp Pulse Resp BP Pulse Ox 98.3 F 84 18 159/81 98 03/26/17 11:28 03/26/17 11:28 03/26/17 11:28 03/26/17 11:28 03/26/17 11:28 Vital Signs - Last 8 Hours Temp Pulse Resp BP Pulse Ox 04/02/17 13:30 97.8 F 93 18 138/68 93 04/02/17 10:20 98.4 F 80 18 120/67 93 04/02/17 10:05 97.3 F L 89 18 108/65 92 04/02/17 07:44 98.0 F 95 14 108/62 94 Intake and Output 04/01/17 04/02/17 04/02/17 23:59 07:59 15:59 Intake Total 1060 / 1060 120 / 120 1090 / 1090 Output Total 100 / 100 300 / 300 0 / 0 Balance 960 / 960 -180 / -180 1090 / 1090 Intake: IV Fluids 1000 / 1000 500 / 500 0.9 % Sodium Chloride 1,000 ML 1000 / 1000 500 / 500 @ 100 mls/hr IVC .Q10H [facility] Rx#: [id number] Oral 60 / 60 120 / 120 240 / 240 Blood Product 350 / 350 Rbcs Leuko Poor As-1 Unit 350 / 350 [id number] Output: Urine 100 / 100 300 / 300 0 / 0 Other: Meal Lunch Weight 59.12 kg Patient Weight 04/02/17 23:59 Weight 59.12 kg - General Appearance General appearance: well-developed, well-nourished EENT: ATNC Neck: supple Respiratory: clear Cardiology: edema (1+ edema in her bilateral lower extremities. ), regular rate , regular rhythm Integumentary: warm and dry Neurologic: alert and oriented x3 Psychiatric: mood/affect appropriate Results - Lab Results 04/02/17 04:57 04/02/17 04:57 Most recent lab results Calcium 8.4 mg/dL (8.6-10.3) L 04/02/17 04:57 Phosphorus 4.2 mg/dL (2.7-4.5) 03/31/17 06:12 Magnesium 2.4 mg/dL (1.6-2.6) 03/31/17 06:12 Consult Discharge Plan - Plan Referrals: Christie Heredia CNP [Advanced Practice Nurse] - 04/06/17 1:20 pm Lester White MD [Primary Care Provider] -
[2017-04-02] MEDS ORDERED: 0.9 % Sodium Chloride 250 ML ONE (15:40)
[2017-04-03] MEDS: 0.9 % Sodium Chloride 1,000 ML IVC SCH (06:28)
[2017-04-03] MEDS: *HR* Enoxaparin 30 MG/0.3 ML SYRINGE SQ SCH (06:31)
[2017-04-03 07:56] LABS: Albumin 2.9 g/dL (3.5-5.7); Albumin/Globulin Ratio 1.7 (1.1-2.2); Bilirubin,Total 0.9 mg/dL (0.3-1.0); Calcium 8.2 mg/dL (8.6-10.3); Globulin 1.7 g/dL (2.4-3.5); Magnesium 1.9 mg/dL (1.6-2.6); Phosphorous 2.5 mg/dL (2.7-4.5); Potassium 3.5 mEq/L (3.5-5.1); Total Protein 4.6 g/dL (6.4-8.9)
[2017-04-03 08:23] LABS: Basophils % 0.7 %; Eosinophils # 0.3 K/mcL (0.0-0.6); Eosinophils % 6.4 %; Hematocrit 30.4 % (35.3-44.9); Immature Granulocytes % 0.9 % (0-4); Lymphocytes % 28.5 %; Mean Corpuscular HGB Conc 32.2 g/dL (31.6-35.5); Mean Corpuscular Hemoglobin 31.4 pg (28.0-33.3); Mean Platelet Volume 10.6 fL (9.4-12.4); Monocytes # 0.7 K/mcL (0.0-1.3); Monocytes % 15.2 %; Neutrophils # 2.1 K/mcL (1.6-8.9); Nucleated Red Blood Cells 0.7 /100 WBC (0); Platelet Count 381 K/mcL (140-400); Red Blood Count 3.12 M/mcL (3.82-4.97); Red Cell Distribution Width 23.1 % (11.5-14.5); Segmented Neutrophils % 48.3 %
[2017-04-03 08:51] LABS: Hemoglobin 9.8 g/dL (11.5-15.4); Lymphocytes # 1.3 K/mcL (0.6-4.6); Mean Corpuscular Volume 97.4 fL (83.0-100.0)
[2017-04-03] MEDS: Folic Acid 1 MG TABLET PO SCH (09:25)
[2017-04-03] MEDS: Cyanocobalamin (B-12) 1,000 MCG TABLET PO SCH (09:25)
[2017-04-03] MEDS: Pantoprazole 40 MG VIAL IVP SCH (09:25)
[2017-04-03] MEDS: Multivit/Ca/Min/Fe/FA 1 TAB TABLET PO SCH (09:25)
[2017-04-03] MEDS: Gabapentin 300 MG CAPSULE PO SCH ×3 (09:25→20:51)
[2017-04-03] MEDS: Cholecalciferol (D-3) 1,000 UNIT TABLET PO SCH (09:25)
[2017-04-03] MEDS: Aspirin 81 MG TAB.CHEW PO SCH (09:25)
--- NOTE | 2017-04-03 11:57 | Nephrology Progress Note ---
Date of Encounter: 04/03/17 Time of Encounter: 11:54 - Assessment and Plan (1) Chronic kidney disease Current Visit: No Status: Chronic Patient's creatinine elevated slightly likely as a response to her anemia. After transfusion and hydration her renal function seems to have returned to his baseline. Continue to avoid nephrotoxins and adjust medications for renal function. Qualifiers: Chronic kidney disease stage: stage 3 (moderate) Qualified Code(s): N18.3 - Chronic kidney disease, stage 3 (moderate) (2) Anemia Current Visit: No Status: Chronic Hemoglobin responded to transfusion. Defer to primary team. Qualifiers: Anemia type: unspecified type Qualified Code(s): D64.9 - Anemia, unspecified (3) Hypertension Current Visit: Yes Status: Acute Her blood pressure is not elevated and is likely related to volume expansion. We will discontinue intravenous saline. If blood pressure remains elevated consider a small dose of furosemide 20 mg by mouth 1. Qualifiers: Hypertension type: other secondary hypertension Qualified Code(s): I15.8 - Other secondary hypertension (4) S/P right hemicolectomy Current Visit: Yes Status: Acute Per the primary care team. Postoperatively she seems to be doing well. Subjective Principal diagnosis: CKD Interval history: The patient was seen she is lying in her bed. She states she has had bowel movements this morning. She states that her diet has advanced to a full liquid diet. She denies any abdominal pain. She seems to be doing well postoperatively. She has no new complaints and is in a very good mood. Objective - Vital Signs Vital signs: Vital Signs Temp Pulse Resp BP Pulse Ox 04/03/17 11:22 97.7 F 75 16 183/68 95 04/03/17 05:26 97.4 F L 75 16 165/72 94 04/03/17 00:47 171/76 04/03/17 00:09 97.5 F L 74 16 175/69 93 04/02/17 18:46 98.2 F 93 18 175/78 93 04/02/17 16:11 99.1 F 90 20 153/79 95 04/02/17 15:55 99.1 F 92 20 155/65 95 04/02/17 13:30 97.8 F 93 18 138/68 93 Intake and Output 04/02/17 04/03/17 04/03/17 23:59 07:59 15:59 Intake Total 300 / 300 500 / 500 0 / 0 Output Total 0 / 0 700 / 700 0 / 0 Balance 300 / 300 -200 / -200 0 / 0 Intake: IV Fluids 500 / 500 0.9 % Sodium Chloride 1,000 ML 500 / 500 @ 100 mls/hr IVC .Q10H [facility] Rx#: [id number] Oral 0 / 0 0 / 0 Blood Product 300 / 300 Rbcs Leuko Poor As-1 Unit 300 / 300 [id number] Output: Urine 0 / 0 700 / 700 0 / 0 Other: Meal NPO Percent of Meal Consumed 0% Stool Size Large Stool Consistency loose Stool Color Dark Red Blood # Voids 1 # Bowel Movements 1 Blood Glucose* 91 108 - General Appearance General appearance: Present: well-developed, well-nourished EENT: Present: ATNC Additional Comments: Respirations are unlabored. Cardiology: Present: regular rate Neurologic: Present: alert and oriented x3 Psychiatric: Present: mood/affect appropriate - Lab 04/03/17 05:35 04/03/17 05:35 Most recent lab results Calcium 8.2 mg/dL (8.6-10.3) L 04/03/17 05:35 Phosphorus 2.5 mg/dL (2.7-4.5) L 04/03/17 05:35 Magnesium 1.9 mg/dL (1.6-2.6) 04/03/17 05:35 - VTE Documentation of Mechanical Device: Graduated compression elastic hosiery Consult Discharge Plan - Plan Referrals: Christie Heredia CNP [Advanced Practice Nurse] - 04/06/17 1:20 pm Lester White MD [Primary Care Provider] -
--- NOTE | 2017-04-03 12:39 | General Surgery Progress Note ---
<Jairo Elizabeth - Last Filed: 04/03/17 12:34> Date of Encounter: 04/03/17 Time of Encounter: 12:34 - Assessment and Plan (1) S/P right hemicolectomy Current Visit: Yes Status: Acute POD#7 s/p lap r rosalina; post operatively ileus possibly resolved; Patient is clinically and hemodynamically stable. Patient has had multiple bowel movement overnight and this morning. - replaced electrolytes K, Phos, Mg - lunch full liquid - dinner soft diet - continue NS IVF - AM labs - continue DVT prophylaxis - encourage ambulation; IS q1hr (2) Cancer of right lung Current Visit: No Status: Chronic currently stable Qualifiers: Qualified Code(s): C34.91 - Malignant neoplasm of unspecified part of right bronchus or lung (3) Chronic kidney disease Current Visit: No Status: Chronic currently stable Qualifiers: Chronic kidney disease stage: stage 3 (moderate) Qualified Code(s): N18.3 - Chronic kidney disease, stage 3 (moderate) (4) Anemia Current Visit: No Status: Chronic anemia currently stable hgb 9.8, and asymptomatic. patient received 2 units prbc on 04/01/17 - closely monitor H+H Qualifiers: Anemia type: unspecified type Qualified Code(s): D64.9 - Anemia, unspecified Subjective Patient reports: feels better, flatus, bowel movement, blood in stool, afebrile Objective Vital Signs - Last 8 Hours Temp Pulse Resp BP Pulse Ox 04/03/17 11:22 97.7 F 75 16 183/68 95 04/03/17 05:26 97.4 F L 75 16 165/72 94 Intake and Output 04/02/17 04/03/17 04/03/17 23:59 07:59 15:59 Intake Total 300 / 300 500 / 500 0 / 0 Output Total 0 / 0 700 / 700 0 / 0 Balance 300 / 300 -200 / -200 0 / 0 Intake: IV Fluids 500 / 500 0.9 % Sodium Chloride 1,000 ML 500 / 500 @ 100 mls/hr IVC .Q10H FREDDIE Rx#: [id number] Oral 0 / 0 0 / 0 Blood Product 300 / 300 Rbcs Leuko Poor As-1 Unit 300 / 300 [id number] Output: Urine 0 / 0 700 / 700 0 / 0 Other: Meal NPO Percent of Meal Consumed 0% Stool Size Large Stool Consistency loose Stool Color Dark Red Blood # Voids 1 # Bowel Movements 1 Blood Glucose* 91 108 - General physical appearance well developed, well nourished, no distress - Eyes normal ocular movement - Respiratory normal expansion, normal respiratory effort, clear to percussion, clear to auscultation - Cardiovascular Cardiovascular exam: Present: RRR - Abdomen Abdomen: Present: bowel sounds present, soft, non tender. Absent: guarding, rebound - Integumentary no rash, no growths, no abnormal pigmentation - Psychiatric oriented to time, oriented to person, oriented to place, speech is normal, memory intact - Labs 04/03/17 05:35 04/03/17 05:35 Diabetes panel 04/03/17 Range/Units 05:35 Sodium 139 (136-145) mEq/L Potassium 3.5 (3.5-5.1) mEq/L Chloride 105 (98-107) mEq/L Carbon Dioxide 29 (23-29) mEq/L BUN 29 H (8-23) mg/dL Creatinine 1.55 H (0.60-1.20) mg/dL Glucose 84 (70-105) mg/dL Calcium 8.2 L (8.6-10.3) mg/dL AST 20 (13-39) Units/L ALT 16 (7-52) Units/L Alkaline Phosphatase 42 (34-104) Units/L Albumin 2.9 L (3.5-5.7) g/dL Calcium panel 04/03/17 Range/Units 05:35 Calcium 8.2 L (8.6-10.3) mg/dL Phosphorus 2.5 L (2.7-4.5) mg/dL Albumin 2.9 L (3.5-5.7) g/dL Pituitary panel 04/03/17 Range/Units 05:35 Sodium 139 (136-145) mEq/L Potassium 3.5 (3.5-5.1) mEq/L Chloride 105 (98-107) mEq/L Carbon Dioxide 29 (23-29) mEq/L BUN 29 H (8-23) mg/dL Creatinine 1.55 H (0.60-1.20) mg/dL Glucose 84 (70-105) mg/dL Calcium 8.2 L (8.6-10.3) mg/dL Adrenal panel 04/03/17 Range/Units 05:35 Sodium 139 (136-145) mEq/L Potassium 3.5 (3.5-5.1) mEq/L Chloride 105 (98-107) mEq/L Carbon Dioxide 29 (23-29) mEq/L BUN 29 H (8-23) mg/dL Creatinine 1.55 H (0.60-1.20) mg/dL Glucose 84 (70-105) mg/dL Calcium 8.2 L (8.6-10.3) mg/dL Total Bilirubin 0.9 (0.3-1.0) mg/dL AST 20 (13-39) Units/L ALT 16 (7-52) Units/L Alkaline Phosphatase 42 (34-104) Units/L Albumin 2.9 L (3.5-5.7) g/dL - VTE Documentation of Mechanical Device: Graduated compression elastic hosiery Consult Discharge Plan - Plan Referrals: Christie Heredia CNP [Advanced Practice Nurse] - 04/06/17 1:20 pm Lester White MD [Primary Care Provider] - <Josh Copeland - Last Filed: 04/03/17 13:14> Date of Encounter: 04/03/17 - Assessment and Plan (1) S/P right hemicolectomy Current Visit: Yes Status: Acute Objective Vital Signs - Last 8 Hours Temp Pulse Resp BP Pulse Ox 04/03/17 11:22 97.7 F 75 16 183/68 95 04/03/17 05:26 97.4 F L 75 16 165/72 94 Intake and Output 04/02/17 04/03/17 04/03/17 23:59 07:59 15:59 Intake Total 300 / 300 500 / 500 0 / 0 Output Total 0 / 0 700 / 700 0 / 0 Balance 300 / 300 -200 / -200 0 / 0 Intake: IV Fluids 500 / 500 0.9 % Sodium Chloride 1,000 ML 500 / 500 @ 100 mls/hr IVC .Q10H FREDDIE Rx#: [id number] Oral 0 / 0 0 / 0 Blood Product 300 / 300 Rbcs Leuko Poor As-1 Unit 300 / 300 [id number] Output: Urine 0 / 0 700 / 700 0 / 0 Other: Meal NPO Percent of Meal Consumed 0% Stool Size Large Stool Consistency loose Stool Color Dark Red Blood # Voids 1 # Bowel Movements 1 Blood Glucose* 91 108 - Labs 04/03/17 05:35 04/03/17 05:35 Diabetes panel 04/03/17 Range/Units 05:35 Sodium 139 (136-145) mEq/L Potassium 3.5 (3.5-5.1) mEq/L Chloride 105 (98-107) mEq/L Carbon Dioxide 29 (23-29) mEq/L BUN 29 H (8-23) mg/dL Creatinine 1.55 H (0.60-1.20) mg/dL Glucose 84 (70-105) mg/dL Calcium 8.2 L (8.6-10.3) mg/dL AST 20 (13-39) Units/L ALT 16 (7-52) Units/L Alkaline Phosphatase 42 (34-104) Units/L Albumin 2.9 L (3.5-5.7) g/dL Calcium panel 04/03/17 Range/Units 05:35 Calcium 8.2 L (8.6-10.3) mg/dL Phosphorus 2.5 L (2.7-4.5) mg/dL Albumin 2.9 L (3.5-5.7) g/dL Pituitary panel 04/03/17 Range/Units 05:35 Sodium 139 (136-145) mEq/L Potassium 3.5 (3.5-5.1) mEq/L Chloride 105 (98-107) mEq/L Carbon Dioxide 29 (23-29) mEq/L BUN 29 H (8-23) mg/dL Creatinine 1.55 H (0.60-1.20) mg/dL Glucose 84 (70-105) mg/dL Calcium 8.2 L (8.6-10.3) mg/dL Adrenal panel 04/03/17 Range/Units 05:35 Sodium 139 (136-145) mEq/L Potassium 3.5 (3.5-5.1) mEq/L Chloride 105 (98-107) mEq/L Carbon Dioxide 29 (23-29) mEq/L BUN 29 H (8-23) mg/dL Creatinine 1.55 H (0.60-1.20) mg/dL Glucose 84 (70-105) mg/dL Calcium 8.2 L (8.6-10.3) mg/dL Total Bilirubin 0.9 (0.3-1.0) mg/dL AST 20 (13-39) Units/L ALT 16 (7-52) Units/L Alkaline Phosphatase 42 (34-104) Units/L Albumin 2.9 L (3.5-5.7) g/dL - Attending Attestation I have personally seen and examined the patient. I have reviewed pertinent labs , imaging, progress notes, including this one. I agree with the above assessment and plan and wish to include the following... POD#8 s/p lap r rosalina with post operative ileus and likley acute blood loss vs dilutional anemia; ileus now resolved; patient having bowel movements and flatus ; still with distension, but improved; start FLD; possible soft diet this evening SLIV when tolerating PO will cont to follow; will plan for d/c once tolerating diet and weather permitting
[2017-04-04 06:27] LABS: Basophils % 0.8 %; Eosinophils # 0.2 K/mcL (0.0-0.6); Eosinophils % 4.7 %; Hematocrit 30.4 % (35.3-44.9); Immature Granulocytes % 0.4 % (0-4); Lymphocytes % 21.2 %; Mean Corpuscular HGB Conc 32.9 g/dL (31.6-35.5); Mean Corpuscular Hemoglobin 31.6 pg (28.0-33.3); Mean Corpuscular Volume 96.2 fL (83.0-100.0); Monocytes # 0.7 K/mcL (0.0-1.3); Monocytes % 13.2 %; Neutrophils # 2.9 K/mcL (1.6-8.9); Nucleated Red Blood Cells 0.4 /100 WBC (0); Platelet Count 396 K/mcL (140-400); Red Blood Count 3.16 M/mcL (3.82-4.97); Red Cell Distribution Width 21.7 % (11.5-14.5); Segmented Neutrophils % 59.7 %
[2017-04-04 06:43] LABS: Albumin 3.1 g/dL (3.5-5.7); Albumin/Globulin Ratio 1.6 (1.1-2.2); Bilirubin,Total 0.9 mg/dL (0.3-1.0); Calcium 8.2 mg/dL (8.6-10.3); Globulin 1.9 g/dL (2.4-3.5); Potassium 3.9 mEq/L (3.5-5.1)
[2017-04-04] MEDS: *HR* Enoxaparin 30 MG/0.3 ML SYRINGE SQ SCH (08:25)
[2017-04-04] MEDS: Multivit/Ca/Min/Fe/FA 1 TAB TABLET PO SCH (08:26)
[2017-04-04] MEDS: Cholecalciferol (D-3) 1,000 UNIT TABLET PO SCH (08:26)
[2017-04-04] MEDS: Folic Acid 1 MG TABLET PO SCH (08:26)
[2017-04-04] MEDS: Pantoprazole 40 MG VIAL IVP SCH (08:26)
[2017-04-04] MEDS: Gabapentin 300 MG CAPSULE PO SCH (08:26)
[2017-04-04] MEDS: Aspirin 81 MG TAB.CHEW PO SCH (08:26)
[2017-04-04] MEDS: Cyanocobalamin (B-12) 1,000 MCG TABLET PO SCH (08:26)
[2017-04-04] MEDS ORDERED: Furosemide 20 MG TABLET PO SCH (09:00)
--- NOTE | 2017-04-04 11:08 | Discharge Summary ---
<Nicole Desir - Last Filed: 04/04/17 18:03> Date of Encounter: 04/04/17 Time of Encounter: 10:00 - Discharge Diagnosis (1) S/P right hemicolectomy Priority: Primary Status: Acute (2) Cancer of right lung Priority: Secondary Status: Chronic Qualifiers: Lung location: unspecified part of lung Qualified Code(s): C34.91 - Malignant neoplasm of unspecified part of right bronchus or lung (3) Chronic kidney disease Priority: Secondary Status: Chronic Qualifiers: Chronic kidney disease stage: stage 3 (moderate) Qualified Code(s): N18.3 - Chronic kidney disease, stage 3 (moderate) (4) Anemia Priority: Secondary Status: Chronic Qualifiers: Anemia type: unspecified type Qualified Code(s): D64.9 - Anemia, unspecified - Discharge Medications Prescriptions: Ondansetron ODT [Zofran ODT] 4 mg SL Q6HR PRN #15 tab.rapdis PRN Reason: Nausea Ibuprofen [Motrin] 600 mg PO Q8HR PRN #42 tab PRN Reason: Mild Pain Home Medications: Aspirin 81 mg PO DAILY 10/29/14 [History] Cholecalciferol (Vitamin D3) [Vitamin D3] 5,000 tab PO DAILY 10/29/14 [History] Cyanocobalamin (Vitamin B-12) [Vitamin B12] 2,500 mcg PO DAILY 10/29/14 [History ] TraMADol [Ultram] 50 mg PO Q6HR PRN 11/05/14 [History] Darbepoetin [Aranesp] 200 mcg SQ Q2W 01/10/15 [History] Multivitamin [Multi-Day Vitamins] 1 each PO DAILY 03/11/15 [History] Folic Acid 0.8 mg PO DAILY 01/20/17 [History] Umeclidinium Brm/Vilanterol Tr [Anoro Ellipta 62.5-25 Mcg INH] 1 puff IH DAILY 03/26/17 [History] Ibuprofen [Motrin] 600 mg PO Q8HR PRN #42 tab 04/04/17 [Rx] Ondansetron ODT [Zofran ODT] 4 mg SL Q6HR PRN #15 tab.rapdis 04/04/17 [Rx] Allergies/Adverse Reactions: 3 Allergy/AdvReac Type Severity Reaction Status Date / Time Penicillins [PCN] Allergy Hives Verified 03/26/17 11:17 Sulfa (Sulfonamide Allergy Itching Verified 03/26/17 11:17 Antibiotics) terbinafine Allergy Itching Verified 03/26/17 11:17 venom-honey bee Allergy Swelling Verified 03/26/17 11:17 [bee venom (honey bee)] morphine AdvReac Migraine Verified 03/26/17 11:17 metal Allergy Itching Uncoded 03/26/17 11:17 General Surgery Exam Initial Vital Signs Temp Pulse Resp BP Pulse Ox 98.3 F 84 18 159/81 98 03/26/17 11:28 03/26/17 11:28 03/26/17 11:28 03/26/17 11:28 03/26/17 11:28 - General physical appearance well developed, well nourished, no distress - Eyes normal ocular movement - Respiratory normal respiratory effort, clear to auscultation - Cardiovascular Cardiovascular exam: Present: RRR - Abdomen Abdomen general surgery: Present: bowel sounds present, soft, non tender, distended (improved). Absent: rigid, peritoneal - Incision Incision: Present: clean and dry, intact - Integumentary Integumentary general surgery: Present: warm and dry, other (bruising around surgical site improved) - Neurologic Present: CN 2-12 grossly intact - Psychiatric Psychiatric general surgery: Present: appropriate, oriented to person, oriented to place, oriented to time, speech is normal, memory intact Date of admission: 03/26/17 19:35 Primary care physician: Lester White MD Consults: 04/02/17 14:43 Consult to Nephrology [CONS] Routine Consulting Provider: Kidney Anastasiya/CESAR/ALLEN/BEATRIZ Reason for Consult: CKD stage IV; anemia of chronic disease; Acute on chronic kidney; Spkoke with Dr. Henderson Time Notified: 14:40 Call Completed: Yes Discharging clinician: Nicole Desir Anticipated date of discharge: 04/04/17 - Patient Status Disposition: Home, Self-Care Condition: Good Functional capacity at discharge: independent ambulation Overall status at discharge: patient is progressing back to baseline - Discharge Instructions Follow Up With: Christie Heredia CNP [Advanced Practice Nurse] - 04/06/17 1:20 pm Lester White MD [Primary Care Provider] - Additional Instructions: 1. No pushing, pulling, or lifting greater than 15 lbs for 2-4 weeks. 2. You may shower beginning today, but no tub baths, soaking, or swimming for 2 weeks. 3. You may resume driving when you are off narcotics and are safe to react in a car. 4. Take ibuprofen every 8 hours for discomfort. If this does not relieve discomfort, you may take the as needed Percocet. Take narcotics as directed. Do not take more narcotics then directed and do not share your narcotics with any other person. Do not drink alcohol while on narcotics. 5. Take stool softeners (Colace) or a water based laxative (Miralax) while taking narcotics. You may hold for loose stools. 6. Report any fevers greater than 100.5F, increase abdominal discomfort, drainage that looks like pus, increased redness or pain at the surgical site, or any vomiting. 7. Report any pain in the calves, shortness of breath, or rapid heartbeat. 8. Follow-up in the office as directed. 9. If you were prescribed antibiotics, do not stop them without talking to your provider. - Diet and Activity Activity: increase activity as tolerated, resume usual activities as tolerated Diet: advance to your usual diet - Hospital Course Hospital course: Ms. Workman is a 81 year old female who had a laparoscopic right hemicolectomy under general anesthesia on 03/26/17 for an unresectable colon polyp, she tolerated the procedure well and was stable upon leaving the OR. 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 Patient developed contraction alkalosis and a post-operative ileus--contraction alkalosis resolved after treatment with electrolyte repletion, normal saline IV fluids. An NG tube was set to low- intermittent wall suction. The patient experienced a drop in Hgb of 7.9 to 6.9 with no obvious active bleeding--she was transfused two units pRBCs and her Hgb responded appropriately, measuring 9.8 the next day. On day before discharge, her post-operative ileus resolved as evidenced by return of bowel function. On the day of discharge, her Hgb was stable at 10, vital signs were stable, she was afebrile, and she felt ready to return home. Patient was instructed to keep her scheduled outpatient follow up appointment with [facility] [facility]. - Time Spent with Patient Total time spent providing and/or coordinating discharge services: Labs on day of discharge: Labs from last 24 hours 04/04/17 04/04/17 04/03/17 05:56 05:56 11:30 WBC 4.9 RBC 3.16 L Hgb 10.0 L Hct 30.4 L MCV 96.2 MCH 31.6 MCHC 32.9 RDW 21.7 H Plt Count 396 MPV 10.0 Immature Gran % 0.4 Seg Neutrophils % 59.7 Lymphocytes % 21.2 Monocytes % 13.2 Eosinophils % 4.7 Basophils % 0.8 Neutrophils # 2.9 Lymphocytes # 1.0 Monocytes # 0.7 Eosinophils # 0.2 Basophils # 0.0 Nucleated RBCs/100 WBC 0.4 H Sodium 141 Potassium 3.9 Chloride 106 Carbon Dioxide 28 BUN 24 H Creatinine 1.39 H Est GFR ( Amer) 44 L Est GFR (Non-Af Amer) 37 L BUN/Creatinine Ratio 17 Glucose 108 H POC Glucose 108 H Calculated Osmolality 297 Calcium 8.2 L Total Bilirubin 0.9 AST 24 ALT 20 Alkaline Phosphatase 48 Serum Total Protein 5.0 L Albumin 3.1 L Globulin 1.9 L Albumin/Globulin Ratio 1.6 - Impressions ITS Impressions Chest X-Ray 03/26/17 11:13 IMPRESSION: Postoperative changes at the left suprahilar region and right hilar region. Improved aeration at the left lung apex. No acute cardiopulmonary disease. D/ / Rene Ambrosio MD / Rene Ambrosio MD Interpreting Provider: Rene Ambroiso MD Chest/Abdomen X-ray 03/31/17 19:22 IMPRESSION: Tip of the nasogastric tube is in the expected location, superimposed over the gastric body. D/ / Phillip Elmore MD / Phillip Elmore MD Interpreting Provider: Phillip Elmore MD Abdomen X-Ray 04/02/17 14:18 IMPRESSION: Nasogastric tube removed in the interval. Distal small bowel obstruction pattern. Small bowel loops are more dilated, although a small amount of colonic gas is appreciated. D/ / Prem Lux MD / Prem Lux MD Interpreting Provider: Prem Lux MD Abdomen/Pelvis CT 04/02/17 14:23 IMPRESSION: Status post recent colonic anastomosis in the right upper quadrant. Small bowel and colon are moderately distended. This is favored to be generalized ileus, although there is transition of caliber noted at the splenic flexure of the colon. Small amount of ascites and pneumoperitoneum, within the expected postoperative range. Small right pleural effusion. Anasarca. Mild distention of urinary bladder. D/ / Prem Lux MD / Prem Lux MD Interpreting Provider: Prem Lux MD <DinorahJosh Pantera - Last Filed: 04/05/17 07:52> Date of Encounter: 04/05/17 - Discharge Diagnosis (1) S/P right hemicolectomy Status: Acute General Surgery Exam Initial Vital Signs Temp Pulse Resp BP Pulse Ox 98.3 F 84 18 159/81 98 03/26/17 11:28 03/26/17 11:28 03/26/17 11:28 03/26/17 11:28 03/26/17 11:28 Date of admission: 03/26/17 19:35 Primary care physician: Lester White MD Consults: 04/02/17 14:43 Consult to Nephrology [CONS] Routine Consulting Provider: Kidney Anastasiya/CESAR/ALLEN/BEATRIZ Reason for Consult: CKD stage IV; anemia of chronic disease; Acute on chronic kidney; Spkoke with Dr. Henderson Time Notified: 14:40 Call Completed: Yes - Hospital Course Hospital course: Ms. Workman is a 81 year old female - Time Spent with Patient Total time spent providing and/or coordinating discharge services: - Impressions ITS Impressions Chest X-Ray 03/26/17 11:13 IMPRESSION: Postoperative changes at the left suprahilar region and right hilar region. Improved aeration at the left lung apex. No acute cardiopulmonary disease. D/ / Rene Ambrosio MD / Rene Ambrosio MD Interpreting Provider: Rene Ambrosio MD Chest/Abdomen X-ray 03/31/17 19:22 IMPRESSION: Tip of the nasogastric tube is in the expected location, superimposed over the gastric body. D/ / Phillip Elmore MD / Phillip Elmore MD Interpreting Provider: Phillip Elmore MD Abdomen X-Ray 04/02/17 14:18 IMPRESSION: Nasogastric tube removed in the interval. Distal small bowel obstruction pattern. Small bowel loops are more dilated, although a small amount of colonic gas is appreciated. D/ / Prem Lux MD / Prem Lux MD Interpreting Provider: Prem Lux MD Abdomen/Pelvis CT 04/02/17 14:23 IMPRESSION: Status post recent colonic anastomosis in the right upper quadrant. Small bowel and colon are moderately distended. This is favored to be generalized ileus, although there is transition of caliber noted at the splenic flexure of the colon. Small amount of ascites and pneumoperitoneum, within the expected postoperative range. Small right pleural effusion. Anasarca. Mild distention of urinary bladder. D/ / Prem Lux MD / Prem Lux MD Interpreting Provider: Prem Lux MD - Attending Attestation I have personally seen and examined the patient. I have reviewed pertinent labs , imaging, progress notes, including this one. I agree with the above assessment and plan and wish to include the following... 81F s/p lap R rosalina complicated by an ileus which resolved as well as acute blood loss anemia vs dilutional anemia which was treated with blood transfusion ; she has met discharge criteria.
--- NOTE | 2017-04-04 11:55 | Nephrology Progress Note ---
Date of Encounter: 04/04/17 Time of Encounter: 11:54 - Assessment and Plan (1) Chronic kidney disease Status: Chronic Patient's creatinine elevated slightly likely as a response to her anemia. After transfusion and hydration her renal function seems to have returned to his baseline. Continue to avoid nephrotoxins and adjust medications for renal function. Qualifiers: Chronic kidney disease stage: stage 3 (moderate) Qualified Code(s): N18.3 - Chronic kidney disease, stage 3 (moderate) (2) Anemia Status: Chronic Hemoglobin responded to transfusion. Defer to primary team. Qualifiers: Anemia type: unspecified type Qualified Code(s): D64.9 - Anemia, unspecified (3) Hypertension Status: Acute Her blood pressure is not elevated and is likely related to volume expansion. Furosemide given. Outpatient management. May need adjustment in antihypertensive medications if elevated blood pressure persists. Qualifiers: Hypertension type: other secondary hypertension Qualified Code(s): I15.8 - Other secondary hypertension (4) S/P right hemicolectomy Status: Acute Per the primary care team. Postoperatively she seems to be doing well. Subjective Principal diagnosis: CKD Interval history: The patient was seen she is lying in her bed. She has no new complaints and is in a very good mood. She has a full breakfast at her bedside. Objective - Vital Signs Vital signs: Vital Signs Temp Pulse Resp BP Pulse Ox 04/04/17 06:39 98.3 F 68 16 159/70 94 04/04/17 04:03 98.0 F 88 15 190/84 95 04/03/17 20:10 98.0 F 72 15 162/78 96 04/03/17 16:35 98.1 F 77 16 149/75 95 Intake and Output 04/03/17 04/04/17 04/04/17 23:59 07:59 15:59 Intake Total 255 / 255 0 / 0 240 / 240 Output Total 800 / 800 1000 / 1000 300 / 300 Balance -545 / -545 -1000 / -1000 -60 / -60 Intake: IV Fluids 255 / 255 Potassium Phosphate 22 MEQ In 0 255 / 255 .9 % Sodium Chloride 250 ML @ 40 mls/hr IVPB ONCE ONE Rx#: [id number] Oral 0 / 0 0 / 0 240 / 240 Output: Urine 800 / 800 1000 / 1000 300 / 300 Other: Meal Breakfast Percent of Meal Consumed 20% Stool Size Small Small Smear Stool Consistency soft soft formed Stool Characteristics Pasty Pasty Stool Color Brown Brown Dark Red Blood Black # Bowel Movements 1 Weight 59.5 kg Patient Weight 04/04/17 23:59 Weight 59.5 kg - General Appearance General appearance: Present: well-developed, well-nourished EENT: Present: ATNC Neck: Present: supple Neurologic: Present: alert and oriented x3 Psychiatric: Present: mood/affect appropriate - Lab 04/04/17 05:56 04/04/17 05:56 Most recent lab results Calcium 8.2 mg/dL (8.6-10.3) L 04/04/17 05:56 Phosphorus 2.5 mg/dL (2.7-4.5) L 04/03/17 05:35 Magnesium 1.9 mg/dL (1.6-2.6) 04/03/17 05:35 - VTE Documentation of Mechanical Device: Intermittent pneumatic compression device Consult Discharge Plan - Plan Additional Instructions: 1. No pushing, pulling, or lifting greater than 15 lbs for 2-4 weeks. 2. You may shower beginning today, but no tub baths, soaking, or swimming for 2 weeks. 3. You may resume driving when you are off narcotics and are safe to react in a car. 4. Take ibuprofen every 8 hours for discomfort. If this does not relieve discomfort, you may take the as needed Percocet. Take narcotics as directed. Do not take more narcotics then directed and do not share your narcotics with any other person. Do not drink alcohol while on narcotics. 5. Take stool softeners (Colace) or a water based laxative (Miralax) while taking narcotics. You may hold for loose stools. 6. Report any fevers greater than 100.5F, increase abdominal discomfort, drainage that looks like pus, increased redness or pain at the surgical site, or any vomiting. 7. Report any pain in the calves, shortness of breath, or rapid heartbeat. 8. Follow-up in the office as directed. 9. If you were prescribed antibiotics, do not stop them without talking to your provider. Referrals: Christie Heredia CNP [Advanced Practice Nurse] - 04/06/17 1:20 pm Lester White MD [Primary Care Provider] - Prescriptions: Ondansetron ODT [Zofran ODT] 4 mg SL Q6HR PRN #15 tab.rapdis PRN Reason: Nausea Ibuprofen [Motrin] 600 mg PO Q8HR PRN #42 tab PRN Reason: Mild Pain
[2017-04-04 12:40] VITALS: BP 158/78
== END 2017-04-04 14:00 | disposition home or self-care (01) | DRG 330 ==
LOC: SAMDAY 10:44 → 3NENU 18:48 → 3ANU 19:35
PROVIDERS: ADMIT Surgery; ATTEND Surgery

== ENCOUNTER 2017-04-06 02:29 | Inpatient (IN) ==
[2017-04-06] MEDS ORDERED: Ondansetron 4 MG/2 ML VIAL IVP PRN (06:02)
[2017-04-06] MEDS ORDERED: Ipratropium/Albuterol Neb 3 ML IH PRN (06:03)
[2017-04-06 06:42] LABS: Basophils # 0.1 K/mcL (0.0-0.2); Basophils % 0.5 %; Eosinophils # 0.1 K/mcL (0.0-0.6); Eosinophils % 1.2 %; Hematocrit 30.8 % (35.3-44.9); Hemoglobin 9.9 g/dL (11.5-15.4); Immature Granulocytes % 0.3 % (0-4); Lymphocytes # 1.1 K/mcL (0.6-4.6); Lymphocytes % 11.4 %; Mean Corpuscular HGB Conc 32.1 g/dL (31.6-35.5); Mean Corpuscular Hemoglobin 31.6 pg (28.0-33.3); Mean Corpuscular Volume 98.4 fL (83.0-100.0); Mean Platelet Volume 10.1 fL (9.4-12.4); Monocytes # 0.8 K/mcL (0.0-1.3); Monocytes % 7.6 %; Neutrophils # 7.9 K/mcL (1.6-8.9); Nucleated Red Blood Cells 0.2 /100 WBC (0); Platelet Count 436 K/mcL (140-400); Red Blood Count 3.13 M/mcL (3.82-4.97); Red Cell Distribution Width 20.4 % (11.5-14.5)
[2017-04-06 06:51] LABS: Calcium 8.2 mg/dL (8.6-10.3); Phosphorous 3.7 mg/dL (2.7-4.5)
[2017-04-06] MEDS ORDERED: *HR* HYDROmorphone (PF) 1 MG/ML SYRINGE IVP PRN (07:40)
--- NOTE | 2017-04-06 07:44 | Internal Med History&Physical ---
Date of Encounter: 04/06/17 Time of Encounter: 07:42 Assessment and Plan (1) Small bowel obstruction Current visit: Yes Status: Acute Likely adhesive related to prior surgery. X-ray shows evidence of bowel obstruction. We will keep NPO, hydrate, NG tube to low intermittent suction. Appreciate surgery input. Replace electrolytes and ambulate. (2) Tubular adenoma Current visit: Yes Status: Acute Tubular adenoma. No evidence of cancer. (3) Chronic kidney disease, stage 3 Current visit: Yes Status: Acute Stable. (4) Normocytic hypochromic anemia Current visit: Yes Status: Acute Likely anemia of chronic disease possible. Hemoglobin stable at baseline. She has chronic kidney disease stage III. (5) DVT prophylaxis Current visit: Yes Status: Acute Heparin subcutaneous Internal Medicine - H&P: HPI Chief complaint: vomiting History of present illness: Ms. Workman is a 81 year old female who had a recent right hemicolectomy for excisional biopsy of a colonic mass found to be tubular adenoma, was just discharged from the hospital 2 days ago presented to outside emergency room with a main complain of vomiting. Since yesterday night patient started experiencing Bilious vomiting, nausea was unable to keep any food down in addition to diffuse crampy periumbilical abdominal pain and abdominal distention. She has not had any bowel movement since yesterday morning. She has not passed any guess since yesterday morning. She denies any fevers or chills. She denies any hematemesis between our hematochezia. She had a prior episode about obstruction after her gallbladder surgery. X-ray performed outside facility showed evidence of small bowel obstruction. Past Med Surg Social Fam HX - Past Medical History Medical history: arthritis, cancer, COPD Psychiatric history: no psych history - Past Surgical History Surgical History: cholecystectomy, herniorrhaphy, hysterectomy, thyroidectomy, other - Social History Smoking Status: Former smoker Smokeless Tobacco Status: No Alcohol use: occasionally Drug use: none - Family History Father Hx Family Cancer: Yes (prostate) Internal Medicine - H&P: Meds Aspirin 81 mg PO DAILY 10/29/14 [History] Cholecalciferol (Vitamin D3) [Vitamin D3] 5,000 tab PO DAILY 10/29/14 [History] Cyanocobalamin (Vitamin B-12) [Vitamin B12] 2,500 mcg PO DAILY 10/29/14 [History ] TraMADol [Ultram] 50 mg PO Q6HR PRN 11/05/14 [History] Darbepoetin [Aranesp] 200 mcg SQ Q2W 01/10/15 [History] Multivitamin [Multi-Day Vitamins] 1 each PO DAILY 03/11/15 [History] Folic Acid 0.8 mg PO DAILY 01/20/17 [History] Umeclidinium Brm/Vilanterol Tr [Anoro Ellipta 62.5-25 Mcg INH] 1 puff IH DAILY 03/26/17 [History] Ibuprofen [Motrin] 600 mg PO Q8HR PRN #42 tab 04/04/17 [Rx] Ondansetron ODT [Zofran ODT] 4 mg SL Q6HR PRN #15 tab.rapdis 04/04/17 [Rx] 3 Allergy/AdvReac Type Severity Reaction Status Date / Time Penicillins [PCN] Allergy Hives Verified 04/06/17 00:11 Sulfa (Sulfonamide Allergy Itching Verified 04/06/17 00:11 Antibiotics) terbinafine Allergy Itching Verified 04/06/17 00:11 venom-honey bee Allergy Swelling Verified 04/06/17 00:11 [bee venom (honey bee)] morphine AdvReac Migraine Verified 04/06/17 00:11 metal Allergy Itching Uncoded 04/06/17 00:11 All Systems PM: A 10-system review of systems was performed and is negative for pertinent findings except as documented above in the HPI. Review of systems: 10 point review of systems is negative except for HPI - Constitutional Vitals: Temp Pulse Resp BP Pulse Ox 98.3 F 92 14 145/83 94 04/06/17 07:19 04/06/17 07:19 04/06/17 07:19 04/06/17 07:19 04/06/17 07:19 Exam: Gen.: patient is alert oriented times 3 not in distress. Cardiac: normal S1 S2 no additional sounds are murmurs. Chest: clear to auscultation. Abdomen: soft distended. Tenderness in periumbilical area. Hyperaudible bowel sounds Lower extremity no swelling mucous membranes: moist Internal Med - H&P Results - Labs CBC & Chem 7: 04/06/17 06:26 04/06/17 06:26 Labs: Short CBC 04/06/17 Range/Units 06:26 WBC 10.0 (4.3-11.1) K/mcL Hgb 9.9 L (11.5-15.4) g/dL Hct 30.8 L (35.3-44.9) % Plt Count 436 H (140-400) K/mcL Neutrophils # 7.9 (1.6-8.9) K/mcL BMP 04/06/17 06:26 Sodium 144 Potassium 4.0 Chloride 104 Carbon Dioxide 30 H BUN 31 H Creatinine 1.44 H Glucose 113 H Calcium 8.2 L
[2017-04-06] MEDS ORDERED: Aspirin 81 MG TAB.CHEW PO SCH (09:00)
[2017-04-06] MEDS: 0.9 % Sodium Chloride 1,000 ML IVC SCH ×2 (09:15→21:12)
[2017-04-06] MEDS: Famotidine 20 MG/2 ML VIAL IVP SCH (09:15)
--- NOTE | 2017-04-06 09:18 | General Surgery Consult Note ---
<YanChristie Lujan - Last Filed: 04/06/17 11:59> Date of Encounter: 04/06/17 Time of Encounter: 08:43 Assessment and Plan (1) Small bowel obstruction Current Visit: Yes Status: Acute Vs postoperative ileus. Pt had CT without contrast (detailed below) which demonstrated concern for SBO CT/CT abd pelvis wo no iv no oral IMPRESSION: 1. Increased small bowel distention with bowel loops now measuring about 5.5 cm. The point of transition is not clearly seen but the findings are concerning for a small bowel obstruction. The colon is largely decompressed with gas and stool at the level of the anastomosis in the mid transverse colon. No free air or pneumatosis. Moderate diffuse ascites. 2. Small bilateral pleural effusions. No acute lung infiltrate at the lung bases. 3. Diffuse anasarca. Plan: NPO NG to LIWS Ice chips Will administer one dose of methylnaltrexone as pt has CKD stage III and previously recommended to avoid nephrotoxins. Chronic condition management per hospitalist Ambulate in halls at least TID with assistance PRN antiemetics Limit opioid use Serial abdominal exams Repeat am labs (2) S/P right hemicolectomy Current Visit: No Status: Acute laparoscopic right hemicolectomy under general anesthesia on 03/26/17 for an unresectable colon polyp, she tolerated the procedure well and was stable upon leaving the OR. 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 (3) Tubular adenoma Current Visit: Yes Status: Acute See above (4) Chronic kidney disease, stage 3 Current Visit: Yes Status: Acute Management per hospitalist History of Present Illness Consult date: 04/06/17 Reason for consult: abdominal pain (Concern for small bowel obstruction) History of present illness: Ms. Workman is a 81 year old female who has a past medical history of CKD stage III, anemia of chronic disease, COPD, and was recently admitted for a laparoscopic right hemicolectomy under general anesthesia on 03/26/17 for an unresectable colon polyp, she tolerated the procedure well and was stable upon leaving the OR. 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 Her hospital course was complicated by contraction alkalosis and a post-operative ileus-- contraction alkalosis resolved after treatment with electrolyte repletion, normal saline IV fluids. An NG tube was set to low-intermittent wall suction. The patient experienced a drop in Hgb of 7.9 to 6.9 with no obvious active bleeding--she was transfused two units pRBCs and completed an abdominal CT without contrast which showed possible SBO vs Ileus. Her Hgb responded appropriately, measuring 9.8 the next day. On day before discharge, her post- operative ileus resolved as evidenced by return of bowel function. On the day of discharge, her Hgb was stable at 10, vital signs were stable, she was afebrile, and she felt ready to return home. Patient was instructed to keep her scheduled outpatient follow up appointment with [facility]. She presented on 04/05/2017 for c/o numerous epsiodes of nausea and vomiting that had began at aprox 0700 that morning (aprox 18 hours prior to calling the squad come here to [facility]). She reported she had been eating her recommended diet since leaving the hospital and had a small BM, but has since not passed gas. She reported that her abdomen was distended but denied abdominal pain. Her hospital course thus far has included an adbominal x-ray which showed dilated loops of small bowel and an NG to [facility]. Her labs are consistent with her chronic conditions. She denies fever, chills, headache, dizziness, near fainting, chest pain, shortness of breath, abdominal pain, black, bloody, or tarry stool, donovan bloody vomitius, or coffee ground vomitus, or generalized weakness She reports vomiting, abdominal distention, and lack of gas/BM as previously described. Patient is known to Dr. Copeland as he is her surgeon. For this reason, surgery will assume primary admitter and consult the hospitalist for chronic condition management. Past Med Surg Social Fam HX - Past Medical History Medical history: arthritis, cancer, COPD Psychiatric history: no psych history - Past Surgical History Surgical History: cholecystectomy, herniorrhaphy, hysterectomy, thyroidectomy, other - Social History Smoking Status: Former smoker Smokeless Tobacco Status: No Alcohol use: occasionally Drug use: none - Family History Father Hx Family Cancer: Yes (prostate) Medications and Allergies Aspirin 81 mg PO DAILY 10/29/14 [History] Cholecalciferol (Vitamin D3) [Vitamin D3] 5,000 tab PO DAILY 10/29/14 [History] Cyanocobalamin (Vitamin B-12) [Vitamin B12] 2,500 mcg PO DAILY 10/29/14 [History ] TraMADol [Ultram] 50 mg PO Q6HR PRN 11/05/14 [History] Darbepoetin [Aranesp] 200 mcg SQ Q2W 01/10/15 [History] Multivitamin [Multi-Day Vitamins] 1 each PO DAILY 03/11/15 [History] Folic Acid 0.8 mg PO DAILY 01/20/17 [History] Umeclidinium Brm/Vilanterol Tr [Anoro Ellipta 62.5-25 Mcg INH] 1 puff IH DAILY 03/26/17 [History] Ondansetron ODT [Zofran ODT] 4 mg SL Q6HR PRN #15 tab.rapdis 04/04/17 [Rx] 3 Allergy/AdvReac Type Severity Reaction Status Date / Time Penicillins [PCN] Allergy Hives Verified 04/06/17 00:11 Sulfa (Sulfonamide Allergy Itching Verified 04/06/17 00:11 Antibiotics) terbinafine Allergy Itching Verified 04/06/17 00:11 venom-honey bee Allergy Swelling Verified 04/06/17 00:11 [bee venom (honey bee)] morphine AdvReac Migraine Verified 04/06/17 00:11 metal Allergy Itching Uncoded 04/06/17 00:11 Review of Systems All systems PM: reviewed and no additional remarkable complaints except as stated All systems PM: A 10-system review of systems was performed and is negative for pertinent findings except as documented above in the HPI. General Surgery Exam Initial Vital Signs Temp Pulse Resp BP Pulse Ox 97.7 F 81 16 132/86 93 04/06/17 05:17 04/06/17 05:17 04/06/17 05:17 04/06/17 05:17 04/06/17 05:17 - General physical appearance no distress, moderate pain, other (Abd distended) - Eyes normal ocular movement - Neck trachea midline, no venous distension - Respiratory normal expansion, normal respiratory effort, clear to auscultation - Cardiovascular Cardiovascular exam: Present: RRR - Abdomen Abdomen general surgery: Present: tympanic, distended, wound (NG to Left nares noted). Absent: bowel sounds present (ABSENT), soft (FIRM) Hernia: Present: none - Incision Incision: Present: clean and dry, intact (periumbilical ecchymosis noted) - Integumentary Integumentary general surgery: Present: warm and dry, other (See above) - Neurologic Present: CN 2-12 grossly intact, normal coordination, normal sensation - Musculoskeletal Present: normal gait, normal posture - Psychiatric Psychiatric general surgery: Present: A&Ox3, appropriate, oriented to person, oriented to place, oriented to time, speech is normal, memory intact Exam Initial Vital Signs Temp Pulse Resp BP Pulse Ox 97.7 F 81 16 132/86 93 04/06/17 05:17 04/06/17 05:17 04/06/17 05:17 04/06/17 05:17 04/06/17 05:17 Results - Labs 04/06/17 06:26 04/06/17 06:26 Abnormal lab results RBC 3.13 M/mcL (3.82-4.97) L 04/06/17 06:26 Hgb 9.9 g/dL (11.5-15.4) L 04/06/17 06:26 Hct 30.8 % (35.3-44.9) L 04/06/17 06:26 RDW 20.4 % (11.5-14.5) H 04/06/17 06:26 Plt Count 436 K/mcL (140-400) H 04/06/17 06:26 Nucleated RBCs/100 WBC 0.2 /100 WBC (0) H 04/06/17 06:26 Carbon Dioxide 30 mEq/L (23-29) H 04/06/17 06:26 BUN 31 mg/dL (8-23) H 04/06/17 06:26 Creatinine 1.44 mg/dL (0.60-1.20) H 04/06/17 06:26 Est GFR ( Amer) 43 (> 60) L 04/06/17 06:26 Est GFR (Non-Af Amer) 35 (> 60) L 04/06/17 06:26 Glucose 113 mg/dL (70-105) H 04/06/17 06:26 Calculated Osmolality 305 (280-300) H 04/06/17 06:26 Calcium 8.2 mg/dL (8.6-10.3) L 04/06/17 06:26 Diabetes panel 04/06/17 Range/Units 06:26 Sodium 144 (136-145) mEq/L Potassium 4.0 (3.5-5.1) mEq/L Chloride 104 (98-107) mEq/L Carbon Dioxide 30 H (23-29) mEq/L BUN 31 H (8-23) mg/dL Creatinine 1.44 H (0.60-1.20) mg/dL Glucose 113 H (70-105) mg/dL Calcium 8.2 L (8.6-10.3) mg/dL Calcium panel 04/06/17 Range/Units 06:26 Calcium 8.2 L (8.6-10.3) mg/dL Phosphorus 3.7 (2.7-4.5) mg/dL Pituitary panel 04/06/17 Range/Units 06:26 Sodium 144 (136-145) mEq/L Potassium 4.0 (3.5-5.1) mEq/L Chloride 104 (98-107) mEq/L Carbon Dioxide 30 H (23-29) mEq/L BUN 31 H (8-23) mg/dL Creatinine 1.44 H (0.60-1.20) mg/dL Glucose 113 H (70-105) mg/dL Calcium 8.2 L (8.6-10.3) mg/dL Adrenal panel 04/06/17 Range/Units 06:26 Sodium 144 (136-145) mEq/L Potassium 4.0 (3.5-5.1) mEq/L Chloride 104 (98-107) mEq/L Carbon Dioxide 30 H (23-29) mEq/L BUN 31 H (8-23) mg/dL Creatinine 1.44 H (0.60-1.20) mg/dL Glucose 113 H (70-105) mg/dL Calcium 8.2 L (8.6-10.3) mg/dL All other labs normal. Consult Discharge Plan - Plan Referrals: Lester White MD [Primary Care Provider] - <Josh Copeland - Last Filed: 04/06/17 12:48> Date of Encounter: 04/06/17 Review of Systems All systems PM: A 10-system review of systems was performed and is negative for pertinent findings except as documented above in the HPI. General Surgery Exam Initial Vital Signs Temp Pulse Resp BP Pulse Ox 97.7 F 81 16 132/86 93 04/06/17 05:17 04/06/17 05:17 04/06/17 05:17 04/06/17 05:17 04/06/17 05:17 Exam Initial Vital Signs Temp Pulse Resp BP Pulse Ox 97.7 F 81 16 132/86 93 04/06/17 05:17 04/06/17 05:17 04/06/17 05:17 04/06/17 05:17 04/06/17 05:17 Results - Labs 04/06/17 06:26 04/06/17 06:26 Abnormal lab results RBC 3.13 M/mcL (3.82-4.97) L 04/06/17 06:26 Hgb 9.9 g/dL (11.5-15.4) L 04/06/17 06:26 Hct 30.8 % (35.3-44.9) L 04/06/17 06:26 RDW 20.4 % (11.5-14.5) H 04/06/17 06:26 Plt Count 436 K/mcL (140-400) H 04/06/17 06:26 Nucleated RBCs/100 WBC 0.2 /100 WBC (0) H 04/06/17 06:26 Carbon Dioxide 30 mEq/L (23-29) H 04/06/17 06:26 BUN 31 mg/dL (8-23) H 04/06/17 06:26 Creatinine 1.44 mg/dL (0.60-1.20) H 04/06/17 06:26 Est GFR ( Amer) 43 (> 60) L 04/06/17 06:26 Est GFR (Non-Af Amer) 35 (> 60) L 04/06/17 06:26 Glucose 113 mg/dL (70-105) H 04/06/17 06:26 POC Glucose 103 (58-89) H 04/06/17 11:22 Calculated Osmolality 305 (280-300) H 04/06/17 06:26 Calcium 8.2 mg/dL (8.6-10.3) L 04/06/17 06:26 Diabetes panel 04/06/17 Range/Units 06:26 Sodium 144 (136-145) mEq/L Potassium 4.0 (3.5-5.1) mEq/L Chloride 104 (98-107) mEq/L Carbon Dioxide 30 H (23-29) mEq/L BUN 31 H (8-23) mg/dL Creatinine 1.44 H (0.60-1.20) mg/dL Glucose 113 H (70-105) mg/dL Calcium 8.2 L (8.6-10.3) mg/dL Calcium panel 04/06/17 Range/Units 06:26 Calcium 8.2 L (8.6-10.3) mg/dL Phosphorus 3.7 (2.7-4.5) mg/dL Pituitary panel 04/06/17 Range/Units 06:26 Sodium 144 (136-145) mEq/L Potassium 4.0 (3.5-5.1) mEq/L Chloride 104 (98-107) mEq/L Carbon Dioxide 30 H (23-29) mEq/L BUN 31 H (8-23) mg/dL Creatinine 1.44 H (0.60-1.20) mg/dL Glucose 113 H (70-105) mg/dL Calcium 8.2 L (8.6-10.3) mg/dL Adrenal panel 04/06/17 Range/Units 06:26 Sodium 144 (136-145) mEq/L Potassium 4.0 (3.5-5.1) mEq/L Chloride 104 (98-107) mEq/L Carbon Dioxide 30 H (23-29) mEq/L BUN 31 H (8-23) mg/dL Creatinine 1.44 H (0.60-1.20) mg/dL Glucose 113 H (70-105) mg/dL Calcium 8.2 L (8.6-10.3) mg/dL All other labs normal. - Attending Attestation I have personally seen and examined the patient. I have reviewed pertinent labs , imaging, progress notes, including this one. I agree with the above assessment and plan and wish to include the following... 81F POD# 6 s/p lap R hemicolectomy still with post operative ileus despite signs of bowel function; currently with NG tube, abdominal distension, no pain ; limit narcotics; ambulate as tolerated; PT/OT, wheeled walker for patient; NPO ; replete lytes; await return of bowel function; will plan for UGI series if distension does not resolve and/or bowel function does not return; Will plan on TPN if not on a diet in 2-3 days
[2017-04-06] MEDS ORDERED: Methylnaltrexone 12 MG/0.6 ML SYRINGE SQ ONE (12:14)
[2017-04-06] MEDS: *HR* Heparin 5,000 UNIT/ML VIAL SQ SCH ×2 (15:08→21:06)
[2017-04-07 01:06] LABS: Bilirubin,Urine Small (Negative); Blood,Urine Negative (Negative); Clarity,Urine Clear (Clear); Color,Urine Yellow (Yellow); Glucose,Urine (UA) Normal (Normal); Ketones,Urine Trace mg/dL (Negative); Leukocyte Esterase,Urine Negative (Negative); Nitrite,Urine Negative (Negative); PH,Urine 6.5 pH Units (5.0-8.0); Protein,Urine Trace mg/dL (Neg-Trace); Specific Gravity,Urine 1.014 (1.010-1.025); Urobilinogen,Urine Normal (Normal)
[2017-04-07 01:09] LABS: Bacteria,Urine None Seen per hpf (None-Few); Hyaline Casts,Urine None Seen per lpf (None-Few); Squamous Epithelial Cell,Urine Few per lpf (None-Few); WBC,Urine 0-3 per hpf (0-3)
[2017-04-07] MEDS: *HR* Heparin 5,000 UNIT/ML VIAL SQ SCH ×3 (05:10→21:49)
[2017-04-07 05:54] LABS: Basophils # 0.1 K/mcL (0.0-0.2); Basophils % 0.7 %; Eosinophils # 0.3 K/mcL (0.0-0.6); Eosinophils % 3.3 %; Hematocrit 30.9 % (35.3-44.9); Hemoglobin 9.5 g/dL (11.5-15.4); Immature Granulocytes % 0.6 % (0-4); Lymphocytes # 1.1 K/mcL (0.6-4.6); Lymphocytes % 13.2 %; Mean Corpuscular HGB Conc 30.7 g/dL (31.6-35.5); Mean Platelet Volume 10.2 fL (9.4-12.4); Monocytes # 0.6 K/mcL (0.0-1.3); Monocytes % 7.4 %; Neutrophils # 6.2 K/mcL (1.6-8.9); Nucleated Red Blood Cells 0.4 /100 WBC (0); Platelet Count 426 K/mcL (140-400); Red Blood Count 3.06 M/mcL (3.82-4.97); Red Cell Distribution Width 20.4 % (11.5-14.5); Segmented Neutrophils % 74.8 %
[2017-04-07 06:07] LABS: Calcium 7.8 mg/dL (8.6-10.3); Potassium 3.9 mEq/L (3.5-5.1)
[2017-04-07] MEDS: 0.9 % Sodium Chloride 1,000 ML IVC SCH ×2 (07:40→21:48)
[2017-04-07] MEDS: Famotidine 20 MG/2 ML VIAL IVP SCH (07:41)
[2017-04-07] MEDS ORDERED: Methylnaltrexone 12 MG/0.6 ML SYRINGE SQ ONE (10:05)
--- NOTE | 2017-04-07 11:00 | General Surgery Progress Note ---
Date of Encounter: 04/07/17 Time of Encounter: 10:58 - Assessment and Plan (1) Ileus following gastrointestinal surgery Current Visit: Yes Status: Acute 81F s/p lap r rosalina with prolonged post op ileus; patient having bowel function; - keep NPO - cont NG tube - SBFT today, contrast via NG tube; - if not obstruction on imaging, then will consider removing NG tube if pt having continue bowel function Subjective Patient reports: no new complaints, feels better, flatus Objective Vital Signs - Last 8 Hours Temp Pulse Resp BP Pulse Ox 04/07/17 10:26 98.3 F 87 14 172/78 95 04/07/17 08:01 95 04/07/17 06:40 98.7 F 87 14 158/89 95 04/07/17 05:13 86 163/68 04/07/17 04:26 88 174/73 04/07/17 03:52 98.1 F 71 16 179/78 94 Intake and Output 04/06/17 04/07/17 04/07/17 23:59 07:59 15:59 Intake Total 1000 / 1000 1000 / 1000 0 / 0 Output Total 640 / 640 660 / 660 200 / 200 Balance 360 / 360 340 / 340 -200 / -200 Intake: IV Fluids 1000 / 1000 1000 / 1000 0.9 % Sodium Chloride 1,000 ML 1000 / 1000 1000 / 1000 @ 100 mls/hr IVC .Q10H [facility] Rx#: [id number] Oral 0 / 0 0 / 0 0 / 0 Output: Urine 400 / 400 500 / 500 100 / 100 Gastric Drainage 240 / 240 160 / 160 100 / 100 Other: Meal NPO Percent of Meal Consumed 0% Weight 61.1 kg Blood Glucose* 80 88 Patient Weight 04/07/17 23:59 Weight 61.1 kg - General physical appearance well developed, no distress - Respiratory normal expansion, normal respiratory effort - Cardiovascular Cardiovascular exam: Present: RRR - Abdomen Abdomen: Present: soft, non tender, distended (decreased distension) - Incision Incision: Present: clean and dry, intact - Integumentary no rash - Neurologic CN 2-12 grossly intact - Psychiatric oriented to time, oriented to person, oriented to place - Labs 04/07/17 05:18 04/07/17 05:18 Diabetes panel 04/07/17 Range/Units 05:18 Sodium 143 (136-145) mEq/L Potassium 3.9 (3.5-5.1) mEq/L Chloride 110 H (98-107) mEq/L Carbon Dioxide 27 (23-29) mEq/L BUN 33 H (8-23) mg/dL Creatinine 1.35 H (0.60-1.20) mg/dL Glucose 85 (70-105) mg/dL Calcium 7.8 L (8.6-10.3) mg/dL Calcium panel 04/07/17 Range/Units 05:18 Calcium 7.8 L (8.6-10.3) mg/dL Pituitary panel 04/07/17 Range/Units 05:18 Sodium 143 (136-145) mEq/L Potassium 3.9 (3.5-5.1) mEq/L Chloride 110 H (98-107) mEq/L Carbon Dioxide 27 (23-29) mEq/L BUN 33 H (8-23) mg/dL Creatinine 1.35 H (0.60-1.20) mg/dL Glucose 85 (70-105) mg/dL Calcium 7.8 L (8.6-10.3) mg/dL Adrenal panel 04/07/17 Range/Units 05:18 Sodium 143 (136-145) mEq/L Potassium 3.9 (3.5-5.1) mEq/L Chloride 110 H (98-107) mEq/L Carbon Dioxide 27 (23-29) mEq/L BUN 33 H (8-23) mg/dL Creatinine 1.35 H (0.60-1.20) mg/dL Glucose 85 (70-105) mg/dL Calcium 7.8 L (8.6-10.3) mg/dL Consult Discharge Plan - Plan Referrals: Lester White MD [Primary Care Provider] -
--- NOTE | 2017-04-07 19:03 | Internal Med Progress Note ---
Date of Encounter: 04/07/17 Time of Encounter: 11:00 - Assessment and plan (1) Small bowel obstruction Current Visit: Yes Status: Acute Assessment and plan: Patient currently nothing by mouth NG tube Small bowel follow-through scheduled for today for further evaluation Surgery following an appreciate recommendations (2) S/P right hemicolectomy Current Visit: No Status: Acute Assessment and plan: Secondary to tubular adenoma (3) Tubular adenoma Current Visit: Yes Status: Acute Assessment and plan: -Removal status post right hemicolectomy as above (4) DVT prophylaxis Current Visit: Yes Status: Acute Assessment and plan: Heparin - Subjective Interval history: Patient currently nothing by mouth NG tube Small bowel follow-through scheduled for today for further evaluation - Constitutional Vitals: Temp Pulse Resp BP Pulse Ox 97.8 F 82 14 153/81 95 04/07/17 14:32 04/07/17 14:32 04/07/17 14:32 04/07/17 14:32 04/07/17 14:32 - Respiratory Respiratory exam: Present: CTAB. Absent: accessory muscle use, rales, rhonchi, wheezes - Cardiovascular Cardiovascular exam: Present: RRR, +S1, +S2. Absent: diastolic murmur, gallop, rubs, systolic murmur Internal Medicine: Result - Labs CBC & Chem 7: 04/07/17 05:18 04/07/17 05:18 Labs: Short CBC 04/07/17 Range/Units 05:18 WBC 8.3 (4.3-11.1) K/mcL Hgb 9.5 L (11.5-15.4) g/dL Hct 30.9 L (35.3-44.9) % Plt Count 426 H (140-400) K/mcL Neutrophils # 6.2 (1.6-8.9) K/mcL BMP 04/07/17 05:18 Sodium 143 Potassium 3.9 Chloride 110 H Carbon Dioxide 27 BUN 33 H Creatinine 1.35 H Glucose 85 Calcium 7.8 L Urine 04/07/17 Range/Units 00:49 Urine Color Yellow (Yellow) Urine Clarity Clear (Clear) Urine pH 6.5 (5.0-8.0) pH Units Ur Specific Chauncey 1.014 (1.010-1.025) Urine Protein Trace (Neg-Trace) mg/dL Urine Glucose (UA) Normal (Normal) mg/dL Consult Discharge Plan - Plan Referrals: Lester White MD [Primary Care Provider] -
[2017-04-07] MEDS: Methyl Salicylate/Menthol 28 GM TUBE TP SCH (21:47)
[2017-04-08] MEDS: *HR* Heparin 5,000 UNIT/ML VIAL SQ SCH ×3 (05:15→23:23)
[2017-04-08] MEDS: 0.9 % Sodium Chloride 1,000 ML IVC SCH ×2 (06:30→07:54)
[2017-04-08] MEDS: Methyl Salicylate/Menthol 28 GM TUBE TP SCH (07:54)
[2017-04-08] MEDS: Famotidine 20 MG/2 ML VIAL IVP SCH (07:55)
--- NOTE | 2017-04-08 09:02 | General Surgery Progress Note ---
Date of Encounter: 04/08/17 Time of Encounter: 09:01 - Assessment and Plan (1) Ileus following gastrointestinal surgery Current Visit: Yes Status: Acute 81F s/p lap r rosalina with prolonged post op ileus; patient having bowel function; - FLD for breakfast - plan for soft diet for lunch if she tolerates breakfast OOBTC ambulate d/c today vs tomorrow pending afternoon assessment Subjective Patient reports: no new complaints, feels better, tolerating liquids well, flatus, bowel movement, afebrile Objective Vital Signs - Last 8 Hours Temp Pulse Resp BP Pulse Ox 04/08/17 07:20 97.6 F 69 16 156/70 96 04/08/17 04:00 98.7 F 76 16 178/77 94 Intake and Output 04/07/17 04/08/17 04/08/17 23:59 07:59 15:59 Intake Total 1120 / 1120 1240 / 1240 Output Total 0 / 0 150 / 150 Balance 1120 / 1120 1090 / 1090 Intake: IV Fluids 1000 / 1000 1000 / 1000 0.9 % Sodium Chloride 1,000 ML 1000 / 1000 1000 / 1000 @ 100 mls/hr IVC .Q10H [facility] Rx#: [id number] Oral 120 / 120 240 / 240 Output: Urine 0 / 0 Urine/Stool Mix 150 / 150 Other: Stool Size Moderate Smear Stool Consistency liquid loose Stool Color Brown Brown Yellow # Voids 3 # Bowel Movements 1 Weight 59.829 kg Blood Glucose* 79 74 Patient Weight 04/08/17 23:59 Weight 59.829 kg - General physical appearance no distress - Respiratory normal expansion, normal respiratory effort - Cardiovascular Cardiovascular exam: Present: RRR - Abdomen Abdomen: Present: soft, non tender, distended (significantly less) - Incision Incision: Present: clean and dry, intact - Neurologic CN 2-12 grossly intact - Labs 04/07/17 05:18 04/07/17 05:18 Consult Discharge Plan - Plan Referrals: Lester White MD [Primary Care Provider] -
[2017-04-08 09:38] LABS: Basophils # 0.1 K/mcL (0.0-0.2); Basophils % 1.3 %; Eosinophils # 0.2 K/mcL (0.0-0.6); Eosinophils % 3.1 %; Hematocrit 30.4 % (35.3-44.9); Hemoglobin 9.3 g/dL (11.5-15.4); Immature Granulocytes % 0.6 % (0-4); Mean Corpuscular HGB Conc 30.6 g/dL (31.6-35.5); Mean Corpuscular Hemoglobin 31.4 pg (28.0-33.3); Mean Corpuscular Volume 102.7 fL (83.0-100.0); Mean Platelet Volume 10.1 fL (9.4-12.4); Monocytes # 0.5 K/mcL (0.0-1.3); Monocytes % 6.6 %; Neutrophils # 5.3 K/mcL (1.6-8.9); Platelet Count 412 K/mcL (140-400); Red Blood Count 2.96 M/mcL (3.82-4.97); Red Cell Distribution Width 20.5 % (11.5-14.5); Segmented Neutrophils % 74.4 %
[2017-04-08 09:49] LABS: Calcium 7.8 mg/dL (8.6-10.3); Potassium 3.6 mEq/L (3.5-5.1)
--- NOTE | 2017-04-08 17:35 | Internal Med Progress Note ---
Date of Encounter: 04/08/17 Time of Encounter: 11:00 - Assessment and plan (1) Small bowel obstruction Current Visit: Yes Status: Acute Assessment and plan: -Prolonged post op ileus; laparoscopic right hemicolectomy under general anesthesia on 03/26/17 for an unresectable colon polyp -NG tube discontinued the evening of 04/07/17 and diet has been advanced throughout today -Consideration for discharge on 04/09/17 if tolerating by mouth (2) S/P right hemicolectomy Current Visit: No Status: Acute Assessment and plan: Secondary to tubular adenoma (3) Tubular adenoma Current Visit: Yes Status: Acute Assessment and plan: -Removal status post right hemicolectomy as above (4) DVT prophylaxis Current Visit: Yes Status: Acute Assessment and plan: Heparin - Subjective Interval history: NG tube discontinued the evening of 04/07/17 and diet has been advanced throughout today - Constitutional Vitals: Temp Pulse Resp BP Pulse Ox 98.3 F 88 18 160/70 96 04/08/17 14:54 04/08/17 14:54 04/08/17 14:54 04/08/17 14:54 04/08/17 14:54 - Respiratory Respiratory exam: Present: CTAB. Absent: accessory muscle use, rales, rhonchi, wheezes - Cardiovascular Cardiovascular exam: Present: RRR, +S1, +S2. Absent: diastolic murmur, gallop, rubs, systolic murmur - Extremities Exam Extremities exam: Present: pedal edema (Bilateral lower extremity edema up to distal tibia), warm, radial pulses palpable and symmetrical. Absent: calf tenderness, cyanotic Internal Medicine: Result - Labs CBC & Chem 7: 04/08/17 09:08 04/08/17 09:08 Labs: Short CBC 04/08/17 Range/Units 09:08 WBC 7.1 (4.3-11.1) K/mcL Hgb 9.3 L (11.5-15.4) g/dL Hct 30.4 L (35.3-44.9) % Plt Count 412 H (140-400) K/mcL Neutrophils # 5.3 (1.6-8.9) K/mcL BMP 04/08/17 09:08 Sodium 146 H Potassium 3.6 Chloride 112 H Carbon Dioxide 24 BUN 29 H Creatinine 1.21 H Glucose 86 Calcium 7.8 L - Impressions Impressions Small Bowel X-Ray 04/07/17 10:04 IMPRESSION: Findings compatible with a mid partial small bowel obstruction. The distal small bowel loops appear to be of normal caliber. Right hemicolectomy. The splenic flexure is identified at 1 hour and 15 minutes. D/ / 04/08/2017 07:48:25 Juan Stapleton MD / jaleesa Interpreting Provider: Juan Stapleton MD Consult Discharge Plan - Plan Referrals: Lester White MD [Primary Care Provider] -
[2017-04-08] MEDS: Acetaminophen 325 MG TABLET PO PRN (20:11)
[2017-04-09] MEDS: Acetaminophen 325 MG TABLET PO PRN (02:31)
[2017-04-09 05:28] LABS: Basophils % 0.7 %; Eosinophils # 0.4 K/mcL (0.0-0.6); Eosinophils % 6.9 %; Hematocrit 28.9 % (35.3-44.9); Immature Granulocytes % 0.6 % (0-4); Lymphocytes # 1.2 K/mcL (0.6-4.6); Lymphocytes % 22.8 %; Mean Corpuscular HGB Conc 31.1 g/dL (31.6-35.5); Mean Corpuscular Volume 99.7 fL (83.0-100.0); Mean Platelet Volume 10.4 fL (9.4-12.4); Monocytes # 0.5 K/mcL (0.0-1.3); Monocytes % 9.5 %; Neutrophils # 3.2 K/mcL (1.6-8.9); Platelet Count 417 K/mcL (140-400); Red Cell Distribution Width 20.2 % (11.5-14.5); Segmented Neutrophils % 59.5 %
[2017-04-09] MEDS: *HR* Heparin 5,000 UNIT/ML VIAL SQ SCH (05:39)
[2017-04-09 06:06] LABS: Calcium 7.7 mg/dL (8.6-10.3); Potassium 3.4 mEq/L (3.5-5.1)
[2017-04-09 06:41] VITALS: BP 160/66
[2017-04-09] MEDS: Methyl Salicylate/Menthol 28 GM TUBE TP SCH ×2 (09:37→10:48)
[2017-04-09] MEDS: Famotidine 20 MG/2 ML VIAL IVP SCH (09:37)
--- NOTE | 2017-04-09 09:55 | Discharge Summary ---
<Payal Mcfarland - Last Filed: 04/09/17 09:51> Date of Encounter: 04/09/17 Time of Encounter: 09:45 - Discharge Diagnosis (1) Ileus following gastrointestinal surgery Priority: Primary Status: Resolved (2) S/P right hemicolectomy Priority: Primary Status: Acute (3) Chronic kidney disease, stage 3 Priority: Secondary Status: Chronic (4) Cancer of right lung Priority: Secondary Status: Chronic Qualifiers: Lung location: unspecified part of lung Qualified Code(s): C34.91 - Malignant neoplasm of unspecified part of right bronchus or lung - Discharge Medications Prescriptions: Ondansetron ODT [Zofran ODT] 4 mg SL Q6HR PRN #30 tab.rapdis PRN Reason: Nausea Omeprazole [PriLOSEC] 20 mg PO DAILY #30 cap Polyethylene Glycol 3350 [MiraLAX] 17 gm PO DAILY #30 powd.pack Home Medications: Aspirin 81 mg PO DAILY 10/29/14 [History] Cholecalciferol (Vitamin D3) [Vitamin D3] 5,000 tab PO DAILY 10/29/14 [History] Cyanocobalamin (Vitamin B-12) [Vitamin B12] 2,500 mcg PO DAILY 10/29/14 [History ] TraMADol [Ultram] 50 mg PO Q6HR PRN 11/05/14 [History] Darbepoetin [Aranesp] 200 mcg SQ Q2W 01/10/15 [History] Multivitamin [Multi-Day Vitamins] 1 each PO DAILY 03/11/15 [History] Folic Acid 0.8 mg PO DAILY 01/20/17 [History] Umeclidinium Brm/Vilanterol Tr [Anoro Ellipta 62.5-25 Mcg INH] 1 puff IH DAILY 03/26/17 [History] Ondansetron ODT [Zofran ODT] 4 mg SL Q6HR PRN #15 tab.rapdis 04/04/17 [Rx] Omeprazole [PriLOSEC] 20 mg PO DAILY #30 cap 04/09/17 [Rx] Ondansetron ODT [Zofran ODT] 4 mg SL Q6HR PRN #30 tab.rapdis 04/09/17 [Rx] Polyethylene Glycol 3350 [MiraLAX] 17 gm PO DAILY #30 powd.pack 04/09/17 [Rx] Allergies/Adverse Reactions: 3 Allergy/AdvReac Type Severity Reaction Status Date / Time Penicillins [PCN] Allergy Hives Verified 04/06/17 00:11 Sulfa (Sulfonamide Allergy Itching Verified 04/06/17 00:11 Antibiotics) terbinafine Allergy Itching Verified 04/06/17 00:11 venom-honey bee Allergy Swelling Verified 04/06/17 00:11 [bee venom (honey bee)] morphine AdvReac Migraine Verified 04/06/17 00:11 metal Allergy Itching Uncoded 04/06/17 00:11 General Surgery Exam Initial Vital Signs Temp Pulse Resp BP Pulse Ox 97.7 F 81 16 132/86 93 04/06/17 05:17 04/06/17 05:17 04/06/17 05:17 04/06/17 05:17 04/06/17 05:17 - General physical appearance well developed, well nourished, no distress - Eyes normal ocular movement - ENT normal mucosa, atraumatic, normocephalic - Neck trachea midline - Respiratory normal respiratory effort, clear to auscultation - Cardiovascular Cardiovascular exam: Present: RRR - Abdomen Abdomen general surgery: Present: bowel sounds present, soft, non tender - Incision Incision: Present: intact (midline with small amount of old blood draining from bottom of incision) - Integumentary Integumentary general surgery: Present: warm and dry - Neurologic Present: CN 2-12 grossly intact - Musculoskeletal Present: normal gait, normal posture - Psychiatric Psychiatric general surgery: Present: appropriate, oriented to person, oriented to place, oriented to time, speech is normal, memory intact Date of admission: 04/06/17 04:39 Primary care physician: Lester White MD Consults: 04/06/17 05:57 Consult to Surgery [CONS] Routine Consulting Provider: [facility] Reason for Consult: SBO Call Completed: Yes 04/06/17 07:37 Consult to Occupational Therapy [CONS] Routine Comment: Evaluate, develop and implement POC Reason for Consult: weakness Consult to Physical Therapy [CONS] Routine Comment: Evaluate, develop and implement POC Reason for Consult: weakness 04/06/17 08:44 Consult to Hospitalist [CONS] Routine Consulting Provider: Hospitalist Arline Reason for Consult: Chronic Condition management. Dr. Mehta has already seen patient. She will be transferred to surgical services as primary. Time Notified: 08:45 Call Completed: No Discharging clinician: Josh Copeland ([facility]) Anticipated date of discharge: 04/09/17 - Patient Status Disposition: Home, Self-Care Condition: Good Overall status at discharge: patient is progressing back to baseline - Discharge Instructions Follow Up With: Josh Copeland MD [Non-Partnered Physician] - 04/14/17 2:35 pm (hospital follow -up) Lester White MD [Primary Care Provider] - 04/16/17 10:30 am (1 week hospital follow-up) Additional Instructions: #1 may shower, no tub bath for 2 weeks #2 wash incisions with soap and water and pat dry daily; apply dry dressing to midline as needed if draining #3 no lifting, pushing, pulling more than 15 pounds for the next 6 weeks #4 no driving until off narcotics for 24 hours and able to safely react in the car #5 may climb stairs - Diet and Activity Activity: other (See additional instructions above) Diet: advance to your usual diet - Hospital Course Hospital course: Ms. Workman is a 81 year old female status post A open right hemicolectomy on 03/26/[address] Copeland. She was discharged after her procedure and subsequently readmitted for a postoperative ileus and inability to keep food or fluids down. The patient was treated with supportive and conservative measures including bowel rest and IV fluids. The patient did undergo a small bowel follow-through which shows the passage of contrast into the colon in one hour and 15 minutes. The patient has had multiple bowel movements and continues to pass flatus. She is tolerating a diet without nausea or vomiting. Her vital signs are stable and she is afebrile. Her pain is very well controlled. She is voiding and anteriorly without difficulty. We will begin discharge planning to home and plan for outpatient follow-up in the next week. - Time Spent with Patient Total time spent providing and/or coordinating discharge services: Less than 30 minutes Labs on day of discharge: Labs from last 24 hours 04/09/17 04/09/17 04:37 04:37 WBC 5.4 RBC 2.90 L Hgb 9.0 L Hct 28.9 L MCV 99.7 MCH 31.0 MCHC 31.1 L RDW 20.2 H Plt Count 417 H MPV 10.4 Immature Gran % 0.6 Seg Neutrophils % 59.5 Lymphocytes % 22.8 Monocytes % 9.5 Eosinophils % 6.9 Basophils % 0.7 Neutrophils # 3.2 Lymphocytes # 1.2 Monocytes # 0.5 Eosinophils # 0.4 Basophils # 0.0 Sodium 144 Potassium 3.4 L Chloride 111 H Carbon Dioxide 29 BUN 23 Creatinine 1.21 H Est GFR ( Amer) 52 L Est GFR (Non-Af Amer) 43 L BUN/Creatinine Ratio 19 Glucose 97 Calculated Osmolality 302 H Calcium 7.7 L - Impressions ITS Impressions KUB X-Ray 04/06/17 12:13 IMPRESSION: NG tube tip and proximal side-port in the gastric fundus. Persistent small bowel distention indicating mid to distal small bowel obstruction. D/ / 04/06/2017 13:26:31 Jarad Chahal MD / mervin Interpreting Provider: Jarad Chahal MD Small Bowel X-Ray 04/07/17 10:04 IMPRESSION: Findings compatible with a mid partial small bowel obstruction. The distal small bowel loops appear to be of normal caliber. Right hemicolectomy. The splenic flexure is identified at 1 hour and 15 minutes. D/ / 04/08/2017 07:48:25 Juan [facility]leton MD / [facility] Interpreting Provider: Juan Stapleton MD - Attending Attestation For this encounter, I have reviewed the [employer] ANALYST or PA documentation, treatment plan, and medical decision making; and I have had face to face time with this patient. <Josh Copeland - Last Filed: 04/09/17 20:43> Date of Encounter: 04/09/17 - Discharge Diagnosis (1) Ileus following gastrointestinal surgery Status: Resolved General Surgery Exam Initial Vital Signs Temp Pulse Resp BP Pulse Ox 97.7 F 81 16 132/86 93 04/06/17 05:17 04/06/17 05:17 04/06/17 05:17 04/06/17 05:17 04/06/17 05:17 Date of admission: 04/06/17 04:39 Primary care physician: Lester White MD Consults: 04/06/17 05:57 Consult to Surgery [CONS] Routine Consulting Provider: [facility] Reason for Consult: SBO Call Completed: Yes 04/06/17 07:37 Consult to Occupational Therapy [CONS] Routine Comment: Evaluate, develop and implement POC Reason for Consult: weakness Consult to Physical Therapy [CONS] Routine Comment: Evaluate, develop and implement POC Reason for Consult: weakness 04/06/17 08:44 Consult to Hospitalist [CONS] Routine Consulting Provider: [facility] Reason for Consult: Chronic Condition management. Dr. Mehta has already seen patient. She will be transferred to surgical services as primary. Time Notified: 08:45 Call Completed: No - Hospital Course Hospital course: Ms. Workman is a 81 year old female - Time Spent with Patient Total time spent providing and/or coordinating discharge services: Labs on day of discharge: Labs from last 24 hours 04/09/17 04/09/17 04:37 04:37 WBC 5.4 RBC 2.90 L Hgb 9.0 L Hct 28.9 L MCV 99.7 MCH 31.0 MCHC 31.1 L RDW 20.2 H Plt Count 417 H MPV 10.4 Immature Gran % 0.6 Seg Neutrophils % 59.5 Lymphocytes % 22.8 Monocytes % 9.5 Eosinophils % 6.9 Basophils % 0.7 Neutrophils # 3.2 Lymphocytes # 1.2 Monocytes # 0.5 Eosinophils # 0.4 Basophils # 0.0 Sodium 144 Potassium 3.4 L Chloride 111 H Carbon Dioxide 29 BUN 23 Creatinine 1.21 H Est GFR ( Amer) 52 L Est GFR (Non-Af Amer) 43 L BUN/Creatinine Ratio 19 Glucose 97 Calculated Osmolality 302 H Calcium 7.7 L - Impressions ITS Impressions KUB X-Ray 04/06/17 12:13 IMPRESSION: NG tube tip and proximal side-port in the gastric fundus. Persistent small bowel distention indicating mid to distal small bowel obstruction. D/ / 04/06/2017 13:26:31 Jarad Chahal MD / mervin Interpreting Provider: Jarad Chahal MD Small Bowel X-Ray 04/07/17 10:04 IMPRESSION: Findings compatible with a mid partial small bowel obstruction. The distal small bowel loops appear to be of normal caliber. Right hemicolectomy. The splenic flexure is identified at 1 hour and 15 minutes. D/ / 04/08/2017 07:48:25 Juan Stapleton MD / jaleesa Interpreting Provider: Juan Stapleton MD - Attending Attestation I have personally seen and examined the patient. I have reviewed pertinent labs , imaging, progress notes, including this one. I agree with the above assessment and plan.
== END 2017-04-09 11:13 | disposition home or self-care (01) | DRG 394 ==
LOC: 3ANU 04:39
PROVIDERS: ADMIT Surgery; ATTEND Surgery